=== PATIENT | female | born 1980 | race Caucasian/White ===

== ENCOUNTER 2017-09-28 11:29 | Emergency (ER) | payer BC ==
[2017-09-28 12:09] LABS: HCG UR QUAL NEGATIVE
[2017-09-28] MEDS ORDERED: IPRATROPIUM/ALBUTEROL 3 ML NEB INH STA (12:27)
[2017-09-28] MEDS ORDERED: IBUPROFEN 800 MG TABLET PO STA (12:28)
--- NOTE | 2017-09-28 12:31 | ED Physician Documentation ---
PD HPI URI - Stated complaint Stated Complaint: BURNING CHEST PX/FEVER/CHILLS/COUGHING BLOOD - Chief complaint Chief Complaint: Resp - History obtained from History obtained from: Patient - History of Present Illness Timing duration: Days (several) Timing details: Gradual onset Associated symptoms: Chills, Sore throat, Dry cough, Chest pain, Dyspnea Contributing factors: Sick contact (Other family members with upper respiratory symptoms.) Similar symptoms before: Has not had sx before - Additional information Additional information: The patient is a 37-year-old female who presents with nonproductive cough, dyspnea, and chest pain with coughing. She has had fatigue, chills, and myalgias that have been progressing over the past several days. She reports generalized headache and sore throat. She denies abdominal pain, vomiting or diarrhea. She found an old albuterol inhaler which has not provided significant relief. Family members have been sick with upper respiratory symptoms recently. The patient does not smoke cigarettes. Review of Systems Constitutional: reports: Fever, Chills, Myalgias, Fatigue Eyes: denies: Irritation Ears: denies: Ear pain Nose: reports: Congestion Throat: reports: Sore throat Cardiac: reports: Chest pain / pressure. denies: Palpitations Respiratory: reports: Dyspnea, Cough GI: denies: Abdominal Pain, Nausea, Vomiting : denies: Dysuria Skin: denies: Rash Musculoskeletal: denies: Back pain, Extremity pain, Extremity swelling Neurologic: reports: Headache. 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 - Present Medications Home Medications: Ambulatory Orders Medication Instructions Recorded Confirmed Albuterol Sulfate [Proventil Hfa 1 - 2 puffs INH Q4H PRN #1 inhaler 09/28/17 Inhaler] Benzonatate [Tessalon Perle] 100 mg PO BID PRN #10 capsule 09/28/17 Herbal Supplements 09/28/17 Immune Support Herbs 09/28/17 Multivitamin [Multiple Vitamins] 1 each PO 09/28/17 [place]-3/Dha/Epa/Fish Oil [Fish Oil 1 each PO 09/28/17 1,000 mg Softgel] predniSONE [Prednisone] 30 mg PO DAILY #15 tablet 09/28/17 - Allergies Allergies/Adverse Reactions: Allergies Allergy/AdvReac Type Severity Reaction Status Date / Time No Known Drug Allergies Allergy Verified 09/28/17 11:38 - Social History Does the pt smoke?: No Smoking Status: Never smoker Does the pt drink ETOH?: No Does the pt have substance abuse?: No - Immunizations Immunizations are current?: Yes - POLST Patient has POLST: No PD ED PE NORMAL - Vitals Vital signs reviewed: Yes (normal) - General General: Alert and oriented X 3, Well developed/nourished - HEENT HEENT: Atraumatic, Moist mucous membranes, Pharynx benign - Neck Neck: Supple, no meningeal sign, No adenopathy, No JVD - Cardiac Cardiac: RRR, No murmur - Respiratory Respiratory: Other (Scattered coarse breath sounds, with wheezing on forced expiration.) - Abdomen Abdomen: Soft, Non tender - Back Back: No CVA TTP - Derm Derm: No rash - Extremities Extremities: No edema, No calf tenderness / cord - Neuro Neuro: Alert and oriented X 3, No motor deficit, Normal speech Results - Vitals Vitals: Oxygen O2 Source Room air - EKG (time done) 11:39 Rate: Rate (enter#) (94) Rhythm: NSR [place]: Normal Intervals: Other (short OR interval) QRS: Normal Ischemia: Normal ST segments Computer interpretation: Agree with computer - Labs Labs: Laboratory Tests 09/28/17 09/28/17 11:44 12:01 Ur Specific [place] <=1.005 Urine HCG, Qual NEGATIVE Influenza A (Rapid) Negative Influenza B (Rapid) Negative Influenza Types A,B Ag - - Rads (name of study) CXR Radiology: Prelim report reviewed, EMP read contemporaneously, See rad report ( Normal 2 view chest radiography.) PD MEDICAL DECISION MAKING - ED course Complexity details: reviewed results, re-evaluated patient, considered differential, d/w patient, d/w family ED course: The patient's presentation is most consistent with asthmatic bronchitis. Chest x-ray reveals no evidence of pneumonia, and I doubt pulmonary embolus. Electrocardiogram is normal, as is her chest x-ray. Influenza swab is negative. Treatment in the emergency department included administration of dexamethasone 10 mg orally, and ibuprofen 800 mg orally. Following the above treatment, her respiratory status improved, and her wheezing resolved. She is being discharged with prescription for albuterol inhaler, prednisone, and Tessalon Perles. I discussed with her and her family the diagnosis, symptomatic treatment and outpatient follow-up, as well as potentially worrisome signs or symptoms that should prompt reevaluation in the emergency department. Departure - Departure Disposition: 01 Home, Self Care Clinical Impression: Asthmatic bronchitis Qualifiers: Asthma severity: moderate Asthma persistence: persistent Asthma complication type: with acute exacerbation Qualified Code(s): J45.41 - Moderate persistent asthma with (acute) exacerbation Condition: Stable Instructions: ED Bronchitis Asthmatic Follow-Up: Jackie Keller MD [Primary Care Provider] - Prescriptions: Albuterol Sulfate [Proventil Hfa Inhaler] 1 - 2 puffs INH Q4H PRN #1 inhaler PRN Reason: Shortness Of Air/Wheezing Benzonatate [Tessalon Perle] 100 mg PO BID PRN #10 capsule PRN Reason: Cough predniSONE [Prednisone] 30 mg PO DAILY #15 tablet Comments: Use albuterol inhaler as prescribed. Take prednisone daily for 5 days as prescribed. You can use Tylenol or ibuprofen if needed for fever or discomfort. Follow up with your primary physician within 1 week. Call to schedule appointment. Return to the emergency department if you develop increasing difficulty breathing, or otherwise worsening symptoms. Discharge Date/Time: 09/28/17 13:53
--- NOTE | 2017-09-28 13:18 | XRAY Preliminary Report ---
Exam: XR CHEST 2 VIEW X-RAY IMPRESSION: Normal 2-view chest radiography. [facility] SITE ID: [id number]
--- NOTE | 2017-09-28 13:26 | XRAY Report ---
EXAM: CHEST RADIOGRAPHY EXAM DATE: 09/28/2017 01:08 PM. CLINICAL HISTORY: Cough, shortness of breath and dizziness for 2 days. COMPARISON: 09/25/2015. TECHNIQUE: 2 views. FINDINGS: Lungs/Pleura: No focal opacities evident. No pleural effusion. No pneumothorax. Normal volumes. Mediastinum: Heart and mediastinal contours are unremarkable. Other: None. IMPRESSION: Normal 2-view chest radiography. [facility] Referring Provider Line: [phone] SITE ID: [id number]
[2017-09-28] MEDS ORDERED: DEXAMETHASONE 10 MG/ML VIAL PO STA (13:28)
[2017-09-28 13:53] VITALS: BP 118/75
== END 2017-09-28 13:53 | disposition home or self-care (01) ==
LOC: ED 11:29
DX: J45.41 Moderate persistent asthma with (acute) exacerbation (principal)
CPT/HCPCS: 71046; 81025; 87275; 87276; 93005; 94640; 94664; 99283; 99284; A9270

== ENCOUNTER 2018-05-11 14:13 | Outpatient (CLI) | payer BC ==
[2018-05-11 18:05] LABS: BASOPHILS % (AUTO) 0.7 %; EOSINOPHILS # (AUTO) 0.3 10^3/uL (0.0-0.7); EOSINOPHILS % (AUTO) 4.4 %; HGB - HEMOGLOBIN 13.3 g/dL (12.0-16.0); LYMPHOCYTES # (AUTO) 2.6 10^3/uL (1.5-3.5); LYMPHOCYTES % (AUTO) 41.8 %; MEAN CORPUSCULAR HEMOGLOBIN 29.6 pg (27.0-31.0); MEAN CORPUSCULAR VOLUME 89.6 fL (81.0-99.0); MEAN PLATELET VOLUME 8.8 fL (7.9-10.8); MONOCYTES # (AUTO) 0.4 10^3/uL (0.0-1.0); MONOCYTES % (AUTO) 5.7 %; NEUTROPHILS % (AUTO) 47.4 %; PLT - PLATELET COUNT 223 10^3/uL (130-450); RED BLOOD COUNT 4.49 10^6/uL (4.20-5.40); RED CELL DISTRIBUTION WIDTH 13.6 % (12.0-15.0); WHITE BLOOD COUNT 6.3 x10^3/uL (4.8-10.8)
[2018-05-11 18:26] LABS: T4 (THYROXINE) 9.07 ug/dL (6.09-12.23)
[2018-05-11 18:29] LABS: THYROID STIMULATING HORMONE 0.64 uIU/mL (0.34-5.60)
[2018-05-11 18:32] LABS: ALBUMIN 4.2 g/dL (3.2-5.5); ALBUMIN/GLOBULIN RATIO 1.3 (1.0-2.2); BILIRUBIN,TOTAL 0.5 mg/dL (0.2-1.0); CALCIUM 9.2 mg/dL (8.5-10.3); CREATININE 0.9 mg/dL (0.4-1.0); FREE T4 (FREE THYROXINE) 0.89 ng/dL (0.58-1.64); TOTAL PROTEIN 7.4 g/dL (6.7-8.2)
[2018-05-14 17:26] LABS: THYROID PEROXIDASE ANTIBODIES 1 IU/mL (<9)
== END 2018-05-11 14:14 | disposition home or self-care (01) ==
LOC: LAB.F 14:13
PROVIDERS: ATTEND Nurse Practitioner Family
DX: N64.4 Mastodynia (principal); Z86.39 Personal history of other endocrine, nutritional and metabolic disease
CPT/HCPCS: 36415; 80053; 82306; 84436; 84439; 84443; 84481; 85025; 86376; 86800

== ENCOUNTER 2018-08-08 18:37 | Outpatient (CLI) | payer BC ==
--- NOTE | 2018-08-09 09:14 | Ultrasound Report ---
Reason: UNCERTAIN GESTATIONAL AGE Procedure Date: 08/08/2018 Accession Number: [id number] / [id number] Procedure: US - OB First Trimester CPT Code: FULL RESULT: EXAM: FIRST TRIMESTER OBSTETRIC ULTRASOUND (Less than 11 weeks) EXAM DATE: 08/08/2018 07:18 PM. CLINICAL HISTORY: . Uncertain gestational age. LMP: Unknown. COMPARISONS: None. TECHNIQUE: Transabdominal ultrasound examination with static image documentation. CLINICAL DATES: Uncertain clinical dates. ASSESSMENT: Gestational Sac: Single intrauterine. Mean gestational sac diameter: 51 mm = 10 weeks, 6 days. Embryo: CRL (crown-rump length) 26 mm = 9 weeks, 3 days. Cardiac activity: 163 beats per minute. Yolk sac: 5 mm. Amniotic fluid: Not accurately assessed at this gestational age. Early placenta: Not well visualized although may be forming anteriorly.. Other: No perigestational fluid collection demonstrated. MATERNAL STRUCTURES: Uterus: Anteverted. Unremarkable. Cervix: Closed. Right Ovary/Adnexa: The ovary measures 3.8 x 1.8 x 2.9 cm, volume 10.1 cc. Within the right ovary is a 1.4 x 1.6 x 1.5 cm lesion with peripheral vascularity likely representing a corpus luteal cyst.. Left Ovary/Adnexa: Nonvisualized which may be due to position or size. Free Fluid: None. Other: None. IMPRESSION: 1. Single viable intrauterine at EGA 9 weeks, 3 days with OMAR 03/10/2019 based on crown-rump length. 2. Right ovarian 1.6 cm lesion likely reversing a corpus luteal cyst. [facility]
== END 2018-08-08 18:38 | disposition home or self-care (01) ==
LOC: DI 18:37
PROVIDERS: ATTEND Midwife
DX: O34.81 Maternal care for other abnormalities of pelvic organs, first trimester (principal); N83.8 Other noninflammatory disorders of ovary, fallopian tube and broad ligament; Z3A.09 9 weeks gestation of pregnancy
CPT/HCPCS: 76801

== ENCOUNTER 2020-06-11 13:20 | Outpatient (CLI) | payer BC | END 2020-06-11 13:21 | disposition home or self-care (01) | LOC: COV 13:20 | PROVIDERS: ATTEND Family Medicine | DX: R53.83 Other fatigue (principal); Z20.828 Contact with and (suspected) exposure to other viral communicable diseases; M79.10 Myalgia, unspecified site; R68.83 Chills (without fever); J02.9 Acute pharyngitis, unspecified; R43.9 Unspecified disturbances of smell and taste; R09.81 Nasal congestion ==

== ENCOUNTER 2020-12-11 10:41 | Emergency (ER) | payer BC ==
--- NOTE | 2020-12-11 11:01 | ED Physician Documentation ---
PD HPI CHEST PAIN - Stated complaint Stated Complaint: CHEST/LEG PX - Chief complaint Chief Complaint: Cardiac - History obtained from History obtained from: Patient - History of Present Illness Timing - onset: How many weeks ago (2 weeks of muscle ahces, chest pain and dyspnea started the day after her COVID vaccine part 2. Thought it would improved after few days, but has persisted. Chest pain anteriorly left, somewhat pleuritic. Has also noted leg cramping the past few days now.) Timing - onset during: Rest Timing - details: Abrupt onset (the day after COVID vaccine.), Still present, Waxing and waning Quality: Aching, Pain Location: Left chest Radiation: Back (left scapular area) Associated symptoms: Nausea, General Weakness. No: Shortness of air, Vomiting, Feeling faint / dizzy, Cough Similar symptoms before: Has not had sx before Recently seen: Clinic (2nd COVID vaccine 2 weeks ago) Review of Systems Constitutional: reports: Chills, Myalgias, Fatigue. denies: Fever Nose: denies: Rhinorrhea / runny nose, Congestion Throat: denies: Sore throat Cardiac: reports: Chest pain / pressure, Calf pain (few days). denies: Palpitations, Pedal edema Respiratory: reports: Dyspnea. denies: Cough GI: denies: Abdominal Pain, Nausea, Vomiting Skin: denies: Rash, Lesions Neurologic: reports: Generalized weakness. 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 - Present Medications Home Medications: Ambulatory Orders Medication Instructions Recorded Confirmed Albuterol Sulfate [Proventil Hfa 1 - 2 puffs INH Q4H PRN #1 inhaler 09/28/17 Inhaler] Benzonatate [Tessalon Perle] 100 mg PO BID PRN #10 capsule 09/28/17 Herbal Supplements 09/28/17 Immune Support Herbs 09/28/17 Multivitamin [Multiple Vitamins] 1 each PO 09/28/17 [place]-3/Dha/Epa/Fish Oil [Fish Oil 1 each PO 09/28/17 1,000 mg Softgel] predniSONE [Prednisone] 30 mg PO DAILY #15 tablet 09/28/17 dexAMETHasone [Decadron] 4 mg PO DAILY #5 tablet 12/11/20 - Allergies Allergies/Adverse Reactions: Allergies Allergy/AdvReac Type Severity Reaction Status Date / Time No Known Drug Allergies Allergy Verified 12/11/20 10:57 - Social History Does the pt smoke?: No Smoking Status: Never smoker Does the pt drink ETOH?: No Does the pt have substance abuse?: No - Immunizations Immunizations are current?: Yes - POLST Patient has POLST: No PD ED PE NORMAL - Vitals Vital signs reviewed: Yes - General General: Alert and oriented X 3, No acute distress, Well developed/nourished - HEENT HEENT: Moist mucous membranes, Pharynx benign - Neck Neck: Supple, no meningeal sign, No adenopathy - Cardiac Cardiac: RRR, No murmur - Respiratory Respiratory: Clear bilaterally, Other (mild chest wall tenderness left pectoral area but does not fully reproduce the symptoms. ) - Abdomen Abdomen: Soft, Non tender - Back Back: No CVA TTP - Derm Derm: Normal color, Warm and dry - Extremities Extremities: No tenderness to palpate, Normal ROM s pain, No edema - Neuro Neuro: Alert and oriented X 3, No motor deficit, Normal speech Results - Vitals Vitals: Vital Signs - 24 hr 12/11/20 12/11/20 12/11/20 10:52 12:06 12:36 Temperature 36.4 C L Heart Rate 83 75 83 Respiratory 16 18 18 Rate Blood Pressure 138/85 H 152/120 H 127/87 H O2 Saturation 100 98 100 12/11/20 13:20 Temperature Heart Rate 81 Respiratory 18 Rate Blood Pressure 109/79 O2 Saturation 100 Oxygen O2 Source Room air - EKG (time done) 10:48 Rate: Rate (enter#) (66) Rhythm: NSR [place]: Normal Intervals: Normal [place] QRS: Normal Ischemia: Normal ST segments. No: ST elevation c/w ischemia, ST depression - Labs Labs: Laboratory Tests 12/11/20 12/11/20 12/11/20 11:08 11:08 11:08 WBC 5.3 RBC 4.33 Hgb 12.8 Hct 38.7 MCV 89.4 MCH 29.6 MCHC 33.1 RDW 12.9 Plt Count 219 MPV 9.5 Neut # (Auto) 2.8 Lymph # (Auto) 1.9 [place] # (Auto) 0.4 Eos # (Auto) 0.2 Baso # (Auto) 0.0 Absolute Nucleated RBC 0.00 Nucleated RBC % 0.0 D-Dimer Sodium 138 Potassium 3.9 Chloride 107 Carbon Dioxide 21 Anion Gap 10.0 BUN 10 Creatinine 0.7 Estimated GFR (MDRD) 92 Glucose 107 H Calcium 8.8 Total Bilirubin 1.1 H AST 19 ALT 22 Alkaline Phosphatase 37 L Troponin I High Sens < 2.3 L B-Natriuretic Peptide Total Protein 7.1 Albumin 4.1 Globulin 3.0 Albumin/Globulin Ratio 1.4 Lipase 32 12/11/20 12/11/20 12:10 12:10 WBC RBC Hgb Hct MCV MCH MCHC RDW Plt Count MPV Neut # (Auto) Lymph # (Auto) [place] # (Auto) Eos # (Auto) Baso # (Auto) Absolute Nucleated RBC Nucleated RBC % D-Dimer < 200.0 L Sodium Potassium Chloride Carbon Dioxide Anion Gap BUN Creatinine Estimated GFR (MDRD) Glucose Calcium Total Bilirubin AST ALT Alkaline Phosphatase Troponin I High Sens B-Natriuretic Peptide 25 Total Protein Albumin Globulin Albumin/Globulin Ratio Lipase - Rads (name of study) chest xray Radiology: Prelim report reviewed (no acut process), See rad report PD MEDICAL DECISION MAKING - ED course Complexity details: reviewed results (no signs of more significant cause. Presume muscular inflammation s/p vaccine. ), considered differential, d/w patient Departure - Departure Disposition: 01 Home, Self Care Clinical Impression: Chest pain Qualifiers: Chest pain type: unspecified Qualified Code(s): R07.9 - Chest pain, unspecified Vaccine reaction Qualifiers: Encounter type: initial encounter Qualified Code(s): T50.Z95A - Adverse effect of other vaccines and biological substances, initial encounter Condition: Stable Record reviewed to determine appropriate education?: Yes Instructions: ED Chest Pain Atypical Unkn Cause Follow-Up: BECCA SLAUGHTER DO [Primary Care Provider] - Prescriptions: dexAMETHasone [Decadron] 4 mg PO DAILY #5 tablet Comments: Your tests here are normal without any signs of more serious cause of your symptoms. I presume some inflammatory response generally still subsequent to the vaccine. We can try Decadron steroid anti-inflammatory for a 5-day short course. Add Tylenol every 4-6 hours if needed for pains. Recheck if not improved well over the next several days and return if worsening. Discharge Date/Time: 12/11/20 13:31
[2020-12-11 11:14] LABS: BASOPHILS % (AUTO) 0.8 %; EOSINOPHILS # (AUTO) 0.2 10^3/uL (0.0-0.7); EOSINOPHILS % (AUTO) 3.2 %; HCT - HEMATOCRIT 38.7 % (37.0-47.0); HGB - HEMOGLOBIN 12.8 g/dL (12.0-16.0); LYMPHOCYTES # (AUTO) 1.9 10^3/uL (1.5-3.5); LYMPHOCYTES % (AUTO) 35.9 %; MEAN CORPUSCULAR HEMOGLOBIN 29.6 pg (27.0-31.0); MEAN CORPUSCULAR HGB CONC 33.1 g/dL (32.0-36.0); MEAN CORPUSCULAR VOLUME 89.4 fL (81.0-99.0); MEAN PLATELET VOLUME 9.5 fL (7.9-10.8); MONOCYTES # (AUTO) 0.4 10^3/uL (0.0-1.0); MONOCYTES % (AUTO) 7.5 %; NEUTROPHILS # (AUTO) 2.8 10^3/uL (1.5-6.6); NEUTROPHILS % (AUTO) 52.4 %; PLT - PLATELET COUNT 219 10^3/uL (130-450); RED BLOOD COUNT 4.33 10^6/uL (4.20-5.40); RED CELL DISTRIBUTION WIDTH 12.9 % (12.0-15.0); WHITE BLOOD COUNT 5.3 x10^3/uL (4.8-10.8)
[2020-12-11] MEDS ORDERED: DEXAMETHASONE 10 MG/ML VIAL IVP STA (11:27)
[2020-12-11] MEDS ORDERED: KETOROLAC 30 MG/ML VIAL IVP STA (11:27)
[2020-12-11] MEDS ORDERED: diphenhydrAMINE INJ 50 MG/ML VIAL IVP STA (11:28)
[2020-12-11 11:36] LABS: ALBUMIN 4.1 g/dL (3.2-5.5); ALBUMIN/GLOBULIN RATIO 1.4 (1.0-2.2); BILIRUBIN,TOTAL 1.1 mg/dL (0.2-1.0); CALCIUM 8.8 mg/dL (8.5-10.3); CREATININE 0.7 mg/dL (0.4-1.0); POTASSIUM 3.9 mmol/L (3.5-5.0); TOTAL PROTEIN 7.1 g/dL (6.7-8.2)
--- NOTE | 2020-12-11 11:47 | XRAY Report ---
PROCEDURE: Chest 1 View X-Ray INDICATIONS: Chest pain TECHNIQUE: One view of the chest was acquired. COMPARISON: 09/28/2017 FINDINGS: Surgical changes and devices: None. Lungs and pleura: No pleural effusions or pneumothorax. Lungs are clear. Mediastinum: Mediastinal contours appear normal. Heart size is normal. Bones and chest wall: No suspicious bony lesions. Overlying soft tissues appear unremarkable. IMPRESSION: No acute cardiopulmonary pathology. Reviewed by: David Jaimes MD on 12/11/2020 11:46 AM PDT Approved by: David Jaimes MD on 12/11/2020 11:46 AM PDT Station ID: [id number]
[2020-12-11 13:21] VITALS: BP 109/79
== END 2020-12-11 13:31 | disposition home or self-care (01) ==
LOC: ED 10:41
DX: R07.9 Chest pain, unspecified (principal); T50.Z95A Adverse effect of other vaccines and biological substances, initial encounter
CPT/HCPCS: 36415; 71045; 80053; 83690; 83880; 84484; 85025; 85379; 93005; 96374; 96375; 99284; J1200

== ENCOUNTER 2021-02-19 15:23 | Outpatient (CLI) | payer BC ==
--- NOTE | 2021-02-19 17:15 | Ultrasound Report ---
PROCEDURE: OB First Trimester w/TV INDICATIONS: SUPERVISION OF , LLQ ABD PAIN OUTSIDE/PRIOR DATING DATA: Last menstrual period (LMP): 12/19/2020. LMP-based estimated date of delivery (OMAR): 09/25/2021. First dating scan (date and location): 02/19/2021. Estimated date of delivery (OMAR) from first dating scan: 10/16/2021. The below data below was generated using the OMAR of 10/16/2021 TECHNIQUE: Real-time scanning was performed of the fetus and maternal pelvic organs, with image documentation. Endovaginal scanning was also performed to better visualize the fetus and maternal ovaries. COMPARISON: None FINDINGS: Embryo: [place]-rump length measures 0.28 cm corresponding to 5 week 6 day gestation. No cardiac activ ity identified. Yolk sac is not well seen. Perigestational bleed measures 1.1 x 1.0 x 3.2 centimeters. Heart rate: None Measurement variability in dating: +/- 4 weeks by LMP, +/- 7 days by mean sac diameter (use before 6 weeks gestation if crown-rump length not able to be measured), +/- 5 days by crown-rump length (6-12 weeks gestation). Maternal organs: Ovaries shows left-sided corpus luteum cyst measuring 2.0 x 1.1 cm . Both ovaries h ave appropriate vascularity.. IMPRESSION: 1. Single intrauterine corresponding with a 5 week 6 day gestation by crown-rump length. No cardiac motion present. Differential considerations include normal early , and demise . Consider short-term interval follow-up. 2. Xi-gestational bleed noted 3.2 x 1.1 cm Reviewed by: Rober Youssef MD on 02/19/2021 4:14 PM KRISTINA Approved by: Rober Youssef MD on 02/19/2021 4:14 PM AKTAS[facility] Station ID: [id number]
== END 2021-02-19 15:24 | disposition home or self-care (01) ==
LOC: DI 15:23
PROVIDERS: ATTEND Midwife
DX: O99.891 Other specified diseases and conditions complicating pregnancy (principal); R10.30 Lower abdominal pain, unspecified; O20.8 Other hemorrhage in early pregnancy; Z3A.01 Less than 8 weeks gestation of pregnancy

== ENCOUNTER 2021-03-10 18:31 | Outpatient (CLI) | payer BC ==
[2021-03-10 18:51] LABS: BASOPHILS # (AUTO) 0.1 10^3/uL (0.0-0.1); BASOPHILS % (AUTO) 0.8 %; EOSINOPHILS # (AUTO) 0.3 10^3/uL (0.0-0.7); EOSINOPHILS % (AUTO) 5.2 %; HCT - HEMATOCRIT 31.7 % (37.0-47.0); HGB - HEMOGLOBIN 10.4 g/dL (12.0-16.0); LYMPHOCYTES # (AUTO) 2.6 10^3/uL (1.5-3.5); LYMPHOCYTES % (AUTO) 44.2 %; MEAN CORPUSCULAR HEMOGLOBIN 30.1 pg (27.0-31.0); MEAN CORPUSCULAR HGB CONC 32.8 g/dL (32.0-36.0); MEAN CORPUSCULAR VOLUME 91.9 fL (81.0-99.0); MEAN PLATELET VOLUME 9.3 fL (7.9-10.8); MONOCYTES # (AUTO) 0.4 10^3/uL (0.0-1.0); MONOCYTES % (AUTO) 6.1 %; NEUTROPHILS # (AUTO) 2.6 10^3/uL (1.5-6.6); NEUTROPHILS % (AUTO) 43.4 %; PLT - PLATELET COUNT 270 10^3/uL (130-450); RED BLOOD COUNT 3.45 10^6/uL (4.20-5.40); RED CELL DISTRIBUTION WIDTH 13.2 % (12.0-15.0); WHITE BLOOD COUNT 5.9 x10^3/uL (4.8-10.8)
== END 2021-03-10 18:32 | disposition home or self-care (01) ==
LOC: LAB 18:31
PROVIDERS: ATTEND Midwife
DX: O03.80 Unspecified complication following complete or unspecified spontaneous abortion (principal); O03.6 Delayed or excessive hemorrhage following complete or unspecified spontaneous abortion; D50.9 Iron deficiency anemia, unspecified
CPT/HCPCS: 36415; 84702; 85025

== ENCOUNTER 2021-03-16 16:49 | Outpatient (CLI) | payer BC ==
--- NOTE | 2021-03-17 08:52 | Ultrasound Report ---
PROCEDURE: Pelvic w/Transvaginal INDICATIONS: SAB, UNSURE IF COMPLETE TECHNIQUE: Real-time scanning was performed of the pelvic organs, with image documentation. Additional endovagi nal scanning was necessary due to incomplete visualization of the adnexal and endometrial structures by transabdominal scanning. COMPARISON: OB ultrasound 02/19/2021 FINDINGS: No pathologic free abdominal or pelvic fluid. Uterus: Uterus is enlarged in size at 10.0 x 3.7 x 6.2 cm. The endometrium measures 19.8 mm in comb ined thickness. It is heterogeneous in appearance. There is an appearance of mild increased vascular ity. Ovaries: Right ovary measures 4.5 x 3.9 x 5.3 cm, volume 14.6 cc. There is a focus of complex echoge nicity measuring 4.1 x 4.0 x 4.3 cm. The left ovary measures 5.0 x 3.3 x 4.5 cm, volume 38.3 cc. A fo maryam area of decreased echogenicity is identified measuring 3.3 x 2.6 x 3.4 cm. IMPRESSION: Heterogeneous thickened endometrium with areas of increased vascularity. Given recent history of spon taneous , retained products of conception cannot be definitively excluded. Simple left ovarian cyst. Complex right ovarian cyst suggestive of hemorrhagic cyst. Reviewed by: Suly Johnson MD on 03/17/2021 8:50 AM PDT Approved by: Suly Johnson MD on 03/17/2021 8:50 AM PDT Station ID: [id number]
== END 2021-03-16 16:50 | disposition home or self-care (01) ==
LOC: DI 16:49
PROVIDERS: ATTEND Midwife
DX: O03.80 Unspecified complication following complete or unspecified spontaneous abortion (principal); O03.6 Delayed or excessive hemorrhage following complete or unspecified spontaneous abortion; R93.89 Abnormal findings on diagnostic imaging of other specified body structures; N83.292 Other ovarian cyst, left side; N83.291 Other ovarian cyst, right side

== ENCOUNTER 2021-04-27 13:08 | Outpatient (CLI) | payer BC | END 2021-04-27 13:09 | disposition home or self-care (01) | LOC: LAB 13:08 | PROVIDERS: ATTEND Internal Medicine Gastroenterology | DX: R19.7 Diarrhea, unspecified (principal) | CPT/HCPCS: 83630 ==

== ENCOUNTER 2021-05-04 19:18 | Emergency (ER) | payer BC ==
[2021-05-04 20:01] LABS: BASOPHILS # (AUTO) 0.1 10^3/uL (0.0-0.1); EOSINOPHILS # (AUTO) 0.1 10^3/uL (0.0-0.7); EOSINOPHILS % (AUTO) 2.3 %; HCT - HEMATOCRIT 41.1 % (37.0-47.0); HGB - HEMOGLOBIN 13.9 g/dL (12.0-16.0); LYMPHOCYTES # (AUTO) 2.3 10^3/uL (1.5-3.5); LYMPHOCYTES % (AUTO) 38.5 %; MEAN CORPUSCULAR HGB CONC 33.8 g/dL (32.0-36.0); MEAN CORPUSCULAR VOLUME 88.8 fL (81.0-99.0); MEAN PLATELET VOLUME 10.1 fL (7.9-10.8); MONOCYTES # (AUTO) 0.4 10^3/uL (0.0-1.0); MONOCYTES % (AUTO) 6.8 %; NEUTROPHILS # (AUTO) 3.1 10^3/uL (1.5-6.6); NEUTROPHILS % (AUTO) 51.2 %; PLT - PLATELET COUNT 228 10^3/uL (130-450); RED BLOOD COUNT 4.63 10^6/uL (4.20-5.40); RED CELL DISTRIBUTION WIDTH 12.1 % (12.0-15.0)
[2021-05-04 20:18] LABS: ALBUMIN 4.3 g/dL (3.2-5.5); ALBUMIN/GLOBULIN RATIO 1.3 (1.0-2.2); BILIRUBIN,TOTAL 0.4 mg/dL (0.2-1.0); CREATININE 0.7 mg/dL (0.4-1.0); POTASSIUM 3.4 mmol/L (3.5-5.0); TOTAL PROTEIN 7.6 g/dL (6.7-8.2)
--- NOTE | 2021-05-04 20:36 | XRAY Report ---
PROCEDURE: Chest 1 View X-Ray INDICATIONS: Chest Pain TECHNIQUE: One view of the chest was acquired. COMPARISON: 12/11/2020. FINDINGS: Surgical changes and devices: None. Lungs and pleura: No pleural effusions or pneumothorax. Lungs are clear. Mediastinum: Mediastinal contours appear normal. Heart size is normal. Bones and chest wall: No suspicious bony lesions. Overlying soft tissues appear unremarkable. IMPRESSION: 1. No acute cardiopulmonary disease. Reviewed by: Alexander Preciado MD on 05/04/2021 8:35 PM PST Approved by: Alexander Preciado MD on 05/04/2021 8:35 PM [facility] Station ID: [id number]
--- NOTE | 2021-05-04 20:49 | ED Physician Documentation ---
History of Present Illness - Stated complaint Stated Complaint: CHEST PX,BODY SHAKES - Chief complaint Chief Complaint: General - History obtained from History obtained from: Patient - History of Present Illness Timing: Today Pain level max: 4 Pain level now: 3 - Additonal information Additional information: Patient is a 40-year-old female who presents to the emergency department stating she felt warmth over her left chest and spreading down her left arm earlier today. She states she has had some intermittent palpitations as well as intermittent epigastric and right upper quadrant abdominal pain. She states that she has been followed by GI for epigastric issues. The abdominal pain is worse with eating, especially fatty foods. Does not have any cardiac history. She is not on medications at home but does take a list of supplements. No fevers. No chills. No coughing. No recent illness. Currently still feels slight warmth and tingling in the left arm. Review of Systems Ten Systems: 10 systems reviewed and negative Constitutional: denies: Fever, Chills Ears: denies: Ear pain Nose: denies: Rhinorrhea / runny nose, Congestion Throat: denies: Sore throat Cardiac: reports: Palpitations. denies: Chest pain / pressure, Calf pain Respiratory: denies: Dyspnea, Cough, Wheezing GI: reports: Diarrhea (Chronic and unchanged). 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 - Present Medications Home Medications: Ambulatory Orders Medication Instructions Recorded Confirmed Albuterol Sulfate [Proventil Hfa 1 - 2 puffs INH Q4H PRN #1 inhaler 09/28/17 Inhaler] Benzonatate [Tessalon Perle] 100 mg PO BID PRN #10 capsule 09/28/17 Herbal Supplements 09/28/17 Immune Support Herbs 09/28/17 Multivitamin [Multiple Vitamins] 1 each PO 09/28/17 [place]-3/Dha/Epa/Fish Oil [Fish Oil 1 each PO 09/28/17 1,000 mg Softgel] predniSONE [Prednisone] 30 mg PO DAILY #15 tablet 09/28/17 dexAMETHasone [Decadron] 4 mg PO DAILY #5 tablet 12/11/20 - Allergies Allergies/Adverse Reactions: Allergies Allergy/AdvReac Type Severity Reaction Status Date / Time No Known Drug Allergies Allergy Verified 12/11/20 10:57 - Social History Does the pt smoke?: No Smoking Status: Never smoker Does the pt drink ETOH?: No Does the pt have substance abuse?: No - Immunizations Immunizations are current?: Yes - POLST Patient has POLST: No PD ED PE NORMAL - Vitals Vital signs reviewed: Yes - General General: Alert and oriented X 3, No acute distress, Well developed/nourished - HEENT HEENT: PERRL, Moist mucous membranes - Neck Neck: Supple, no meningeal sign - Cardiac Cardiac: RRR, No murmur, Strong equal pulses - Respiratory Respiratory: No respiratory distress, Clear bilaterally - Abdomen Abdomen: Soft, Non tender, Non distended - Derm Derm: Warm and dry - Extremities Extremities: No edema, No calf tenderness / cord - Neuro Neuro: Alert and oriented X 3 - Psych Psych: Normal mood, Normal affect Results - Vitals Vitals: Vital Signs - 24 hr 05/04/21 05/04/21 05/04/21 19:26 19:45 21:29 Temperature 36.8 C Heart Rate 98 87 80 Respiratory 20 18 13 Rate Blood Pressure 131/93 H 138/72 H 125/71 O2 Saturation 100 100 100 Oxygen O2 Source Room air - EKG (time done) 1939 Rate: Rate (enter#) (75) Rhythm: NSR Nice: Normal Intervals: Normal [place] QRS: Normal Ischemia: Normal ST segments - Labs Labs: Laboratory Tests 05/04/21 05/04/21 05/04/21 19:54 19:54 19:54 WBC 6.0 RBC 4.63 Hgb 13.9 Hct 41.1 MCV 88.8 MCH 30.0 MCHC 33.8 RDW 12.1 Plt Count 228 MPV 10.1 Neut # (Auto) 3.1 Lymph # (Auto) 2.3 [place] # (Auto) 0.4 Eos # (Auto) 0.1 Baso # (Auto) 0.1 Absolute Nucleated RBC 0.00 Nucleated RBC % 0.0 Sodium 138 Potassium 3.4 L Chloride 102 Carbon Dioxide 25 Anion Gap 11.0 BUN 9 Creatinine 0.7 Estimated GFR (MDRD) 92 Glucose 89 Calcium 9.0 Total Bilirubin 0.4 AST 21 ALT 23 Alkaline Phosphatase 36 L Troponin I High Sens < 2.3 L Total Protein 7.6 Albumin 4.3 Globulin 3.3 Albumin/Globulin Ratio 1.3 Lipase 32 - Rads (name of study) cxr Radiology: Final report received, EMP read contemporaneously, See rad report (No acute abnormality) PD MEDICAL DECISION MAKING - ED course Complexity details: reviewed results, re-evaluated patient, considered differential (No ST elevation CA, no aortic dissection, no PE, no tension pneumothorax, no aortic aneurysm), d/w patient ED course: Patient is a 40-year-old female who presents to the emergency department with several weeks of epigastric and right upper quadrant abdominal pain, worse with eating fatty foods. Had tingling to the left arm tonight as well as a feeling of warmth across her chest. No acute ischemia on EKG. Negative troponin. Normal blood work. Negative chest x-ray. Patient is awaiting ultrasound for potential gallbladder disease. If the ultrasound is negative, the plan will be to send her home. Patient will be signed out to the oncoming emergency department physician awaiting ultrasound. This document was made in part using voice recognition software. While efforts are made to proofread this document, sound alike and grammatical errors may occur. Departure - Departure Clinical Impression: Paresthesia Abdominal pain Qualifiers: Abdominal location: epigastric Qualified Code(s): R10.13 - Epigastric pain Condition: Stable
[2021-05-04] MEDS ORDERED: IOVERSOL 320 100 ML VIAL IVP ONE ×2 (22:21→22:52)
--- NOTE | 2021-05-04 22:26 | Ultrasound Report ---
PROCEDURE: Abdomen Limited INDICATIONS: RUQ abd pain TECHNIQUE: Real-time focused scanning was performed of the abdomen, with image documentation. COMPARISON: None. FINDINGS: Ill-defined echogenic focus measuring approximately 1.5 cm within the head of the pancreas is nonspecific. No pancreatic ductal or biliary ductal dilatation. The gallbladder is unremarkable. Normal appearance of the liver. Right kidney normal in size with no shadowing calculus or hydronephro sis. IMPRESSION: Specific echogenic focus within the pancreas. A CT of the abdomen and pelvis is pending completion, w [facility] will provide further imaging information of this lesion. Otherwise normal right upper quadrant ultrasound. Reviewed by: Jase Castillo MD on 05/04/2021 10:24 PM PST Approved by: Jase Castillo MD on 05/04/2021 10:24 PM PST Station ID: [id number]
--- NOTE | 2021-05-04 23:06 | CT Report ---
PROCEDURE: Abdomen/Pelvis W INDICATIONS: abnormal pancreatic head on US CONTRAST: IV CONTRAST: Optiray 320 ml: 100 PO CONTRAST: *NO PO CONTRAST TECHNIQUE: After the administration of intravenous contrast, 5 mm thick sections acquired from the diaphragms to the symphysis. 5 mm thick coronal and sagittal reformats were acquired. For radiation dose reducti on, the following was used: automated exposure control, adjustment of mA and/or kV according to adolfo ent size. COMPARISON: Same-day ultrasound FINDINGS: Image quality: Excellent. ABDOMEN: Lung bases: Lung bases are clear. Heart size is normal. Solid organs: Liver and spleen are normal in size and enhancement. Gallbladder Biliary system is non dilated. Pancreas enhances normally. No adrenal nodules. Kidneys demonstrate normal size an d enhancement, without hydronephrosis. Peritoneum and bowel: Bowel loops demonstrate normal wall thickness and caliber. No free fluid or a ir. Nodes and vessels: No retroperitoneal or mesenteric adenopathy by size criteria. Aorta and inferior vena cava are normal in size. Miscellaneous: No ventral hernias. PELVIS: Genitourinary: Bladder wall thickness is normal. Miscellaneous: No inguinal hernias or adenopathy. Bones: No suspicious bony lesions. No vertebral body compression fractures. IMPRESSION: Pancreas appears normal by CT. There is no correlate for the echogenic focus seen on the preceding ultrasound. This was presumably artifactual on the ultrasound examination. A precautionary pancreatic protocol examination on nonemergent basis could be obtained if there is continued clinica l suspicion. Reviewed by: Jase Castillo MD on 05/04/2021 11:05 PM [facility] Approved by: Jase Castillo MD on 05/04/2021 11:05 PM PST Station ID: [id number]
--- NOTE | 2021-05-04 23:16 | ED Physician Documentation ---
ED Addendum - Addendum Addendum: 05/04/21 23:09 Patient received as signout from off going physician, please see their documentation for further detail. Patient received a signout with CT abdomen pelvis pending for further evaluation of echogenic abnormality of the head of the pancreas. CT does not demonstrate any significant pancreatic lesion. Patient reevaluated at bedside, found to be resting comfortably and in no acute distress. Reported some ongoing improvement of her previous symptoms. At this time will discharge for follow-up with primary care as needed. Otherwise clear return precautions and follow-up instructions given prior to discharge. Departure - Departure Disposition: Home, Self Care Clinical Impression: Paresthesia Abdominal pain Qualifiers: Abdominal location: epigastric Qualified Code(s): R10.13 - Epigastric pain Condition: Stable Instructions: ED Abdominal Pain Female Non-Specific Abdominal Pain Comments: Thank you for allowing us to care for you today at [facility] In the emergency department today you were evaluated for any possible life threatening injury or illness. All of your lab work and your EKG were very reassuring. The ultrasound performed did not show any abnormality with your gallbladder and the CT scan was also very reassuring and did not show any abnormal findings in your pancreas. 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 If it anytime you have any new or worsening symptoms please do not hesitate to return to the emergency department.
[2021-05-04 23:20] VITALS: BP 115/78
== END 2021-05-04 23:26 | disposition home or self-care (01) ==
LOC: ED 19:18
DX: R20.2 Paresthesia of skin (principal); R10.13 Epigastric pain; Z79.899 Other long term (current) drug therapy
CPT/HCPCS: 36415; 71045; 74177; 76705; 80053; 83690; 84484; 85025; 93005; 99284; Q9967

== ENCOUNTER 2021-06-13 14:23 | Outpatient (CLI) | payer BC ==
--- NOTE | 2021-06-14 13:41 | Mammography Report ---
BILATERAL DIGITAL SCREENING MAMMOGRAM 3D/2D WITH EXAGGERATED CC: 06/13/2021 CLINICAL: Routine screening. Baseline exam. No prior exams were available for comparison. The tissue of both breasts is heterogeneously dense. T his may lower the sensitivity of mammography. No significant masses, calcifications, or other findings are seen in either breast. IMPRESSION: NEGATIVE There is no mammographic evidence of malignancy. A 1 year screening mammogram is recommended. This exam was interpreted at Station ID: [id number]. NOTE: For mammograms, a report in lay terms will be sent to the patient. Approximately 15% of breast malignancies will not be visualized mammographically. In the management of a palpable breast mass, a negative mammogram must not discourage biopsy of a clinically suspicious lesion. Electronically Signed By: Chris Rose M.D. atian/mp:06/14/2021 07:23:13 ACR BI-RADS Category 1: Negative [id number] PARENCHYMAL PATTERN: (D) - The breast(s) demonstrate(s) heterogeneously dense fibroglandular jenny garcia. BI-RADS CATEGORY: (1) - 1 RECOMMENDATION: (ANNUAL) - Recommend routine annual screening mammography. [id number] 1 year screening LATERALITY: (B)
== END 2021-06-13 14:24 | disposition home or self-care (01) ==
LOC: DI.S 14:23
DX: Z12.31 Encounter for screening mammogram for malignant neoplasm of breast (principal)

== ENCOUNTER 2021-06-16 15:36 | Emergency (ER) | payer BC ==
--- NOTE | 2021-06-16 17:02 | ED Physician Documentation ---
PD HPI LOWER EXT INJURY - Stated complaint Stated Complaint: RIGHT CALF PX - Chief complaint Chief Complaint: Ext Problem - History obtained from History obtained from: Patient - History of Present Illness PD HPI LOW EXT INJURY LOCATION: Right, Lower leg Type of injury: Other (no known injury to the area) Timing - onset: How many months ago (6) Timing - duration: Months (6) Timing - details: Abrupt onset, Still present, Waxing and waning Improved by: Rest, Immobilization Worsened by: Moving, Palpating Associated symptoms: Swelling. No: Weakness, Numbness, Tingling Contributing factors: No: Anticoagulated Similar symptoms before: Has not had sx before Recently seen: Not recently seen - Additional information Additional information: 40-year-old female recalls that she has had some pain to the right calf that started this summer in November and then it seemed to resolve. She did not have any injury that she recalls to the calf. This was completely resolved and again has started to bother the patient over the past month. She has pain with walking she has some pain to the posterior calf and this morning when it went up behind the knee the patient became concerned about the possibility of deep vein thrombosis and she is come to the emergency department for evaluation. She does have a superficial vein that is engorged. Review of Systems Constitutional: denies: Fever Eyes: denies: Decreased vision Ears: denies: Ear pain Nose: denies: Congestion Throat: denies: Sore throat Respiratory: denies: Dyspnea, Cough GI: denies: Abdominal Pain, Nausea, Vomiting : denies: Dysuria, Frequency Skin: denies: Rash Musculoskeletal: reports: Extremity pain. 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 - Present Medications Home Medications: Ambulatory Orders Medication Instructions Recorded Confirmed Herbal Supplements 1 tab ORAL DAILY 09/28/17 Immune Support Herbs 1 tab ORAL DAILY 09/28/17 Multivitamin [Multiple Vitamins] 1 each PO DAILY 09/28/17 06/16/21 [place]-3/Dha/Epa/Fish Oil [Fish Oil 1 each PO DAILY 09/28/17 06/16/21 1,000 mg Softgel] - Allergies Allergies/Adverse Reactions: Allergies Allergy/AdvReac Type Severity Reaction Status Date / Time No Known Drug Allergies Allergy Verified 06/16/21 15:46 - Social History Does the pt smoke?: No Smoking Status: Never smoker Does the pt drink ETOH?: No Does the pt have substance abuse?: No - Immunizations Immunizations are current?: Yes - POLST Patient has POLST: No PD ED PE NORMAL - Vitals Vital signs reviewed: Yes (hypertensive ) - General General: Alert and oriented X 3, No acute distress, Well developed/nourished - HEENT HEENT: Atraumatic, PERRL, EOMI - Respiratory Respiratory: No respiratory distress - Derm Derm: Normal color, Warm and dry, No rash - Extremities Extremities: No deformity, No edema, Other (posterior calf tenderness without palpable cord. medial varicose vein without tenderness) - Neuro Neuro: Alert and oriented X 3, packaging associate 2-12 intact, No motor deficit, No sensory deficit, Normal speech Eye Opening: Spontaneous Motor: Obeys Commands Verbal: Oriented GCS Score: 15 - Psych Psych: Normal mood, Normal affect Results - Vitals Vitals: Oxygen O2 Source Room air - Rads (name of study) duplex veins Radiology: Prelim report reviewed (Impression: 1. No sonographic evidence of deep vein thrombosis), EMP read indepedently, See rad report PD MEDICAL DECISION MAKING - ED course Complexity details: reviewed results, re-evaluated patient, considered differential, d/w patient ED course: 40-year-old female with right calf pain has a negative duplex venous examination. Departure - Departure Disposition: 01 Home, Self Care Clinical Impression: Right calf pain Condition: Stable Instructions: ED Strain Muscle Ext Follow-Up: BECCA SLAUGHTER DO [Primary Care Provider] - Discharge Date/Time: 06/16/21 17:37
--- NOTE | 2021-06-16 17:12 | Ultrasound Report ---
PROCEDURE: Duplex Ext Veins Right INDICATIONS: calf pain without strain TECHNIQUE: Real-time imaging, as well as color and pulse Doppler interrogation, were performed of the lower extr emity deep veins from the inguinal ligament to the popliteal fossa. COMPARISON: None. FINDINGS: VASCULATURE: Normal spontaneous flow and phasicity, augmentation and waveforms, and compressibility o f the vessels from the common femoral veins through the calf veins. SOFT TISSUES: No acute abnormality. IMPRESSION: 1.No sonographic evidence of deep venous thrombus. Reviewed by: Efrain Verma MD on 06/16/2021 5:10 PM [facility] Approved by: Efrain Verma MD on 06/16/2021 5:10 PM [facility] Station ID: [id number]
[2021-06-16 17:37] VITALS: BP 121/87
== END 2021-06-16 17:37 | disposition home or self-care (01) ==
LOC: ED 15:36
DX: M79.661 Pain in right lower leg (principal)
CPT/HCPCS: 99283; 99284

== ENCOUNTER 2021-09-02 15:41 | Emergency (ER) | payer BC ==
--- NOTE | 2021-09-02 16:18 | ED Physician Documentation ---
History of Present Illness - Stated complaint Stated Complaint: FEMALE GI/HEART PINCH/SOA/HEADACHE - Chief complaint Chief Complaint: General - Additonal information Additional information: 41-year-old female presents to the emergency department for multiple concerns. 1. She reports that she had sharp nonradiating chest pain 2 days ago when jumping on a trampoline. It has occurred intermittently since. No associated nausea or vomiting. She suspects that she developed SVT after receiving a Covid vaccine but was followed up by imaging technologist and had an unremarkable echo. Denies a sensation of palpitations or lightheadedness right now. She believes that her imaging technologist is trying to schedule her for an outpatient stress test but this has not been completed. No tobacco or alcohol use. 2. Intermittent left upper quadrant abdominal pain that has been present since April 2021. She has had outpatient endoscopy and colonoscopy completed. Per patient there was suspicion of possible gastritis within the stomach as well as lymphocytic colitis. She is suspicious that she has H. pylori infection but the EGD biopsy was negative for this. She denies any melena or hematochezia. In general she has of bloating and full feeling in her left upper abdomen. Denies dysuria or hematuria. She has been told by her refrigerator assembler that she is anxious and because of this she has elected to seek GI care elsewhere. Patient would like to limit labs or imaging unless absolutely necessary today. Review of Systems Constitutional: denies: Fever, Chills Eyes: reports: Reviewed and negative Throat: reports: Reviewed and negative Cardiac: denies: Chest pain / pressure, Palpitations, Pedal edema, Calf pain Respiratory: denies: Dyspnea, Cough, Hemoptysis GI: reports: Abdominal Pain. 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 - Present Medications Home Medications: Ambulatory Orders Medication Instructions Recorded Confirmed Herbal Supplements 1 tab ORAL DAILY 09/28/17 Immune Support Herbs 1 tab ORAL DAILY 09/28/17 Multivitamin [Multiple Vitamins] 1 each PO DAILY 09/28/17 06/16/21 [place]-3/Dha/Epa/Fish Oil [Fish Oil 1 each PO DAILY 09/28/17 06/16/21 1,000 mg Softgel] - Allergies Allergies/Adverse Reactions: Allergies Allergy/AdvReac Type Severity Reaction Status Date / Time No Known Drug Allergies Allergy Verified 09/02/21 15:53 - Social History Does the pt smoke?: No Smoking Status: Never smoker Does the pt drink ETOH?: No Does the pt have substance abuse?: No - Immunizations Immunizations are current?: Yes - POLST Patient has POLST: No PD ED PE NORMAL - General General: Alert and oriented X 3, No acute distress - HEENT HEENT: Atraumatic, Moist mucous membranes - Neck Neck: Supple, no meningeal sign - Cardiac Cardiac: RRR, No murmur - Respiratory Respiratory: No respiratory distress, Clear bilaterally - Abdomen Abdomen: Normal bowel sounds, Soft. No: Non tender (Mild tenderness in the left upper quadrant without guarding or rebound. No splenomegaly.) - Back Back: No CVA TTP, No spinal TTP - Derm Derm: Normal color, Warm and dry, No rash - Extremities Extremities: No deformity, No tenderness to palpate, Normal ROM s pain - Neuro Neuro: Alert and oriented X 3, medicinal chemist 2-12 intact Eye Opening: Spontaneous Motor: Obeys Commands Verbal: Oriented GCS Score: 15 Results - Vitals Vitals: Vital Signs - 24 hr 09/02/21 09/02/21 15:47 16:37 Temperature 36.6 C Heart Rate 74 80 Respiratory 16 12 Rate Blood Pressure 117/74 117/75 O2 Saturation 99 100 Oxygen O2 Source Room air - Labs Labs: Laboratory Tests 09/02/21 09/02/21 09/02/21 16:14 16:47 16:47 WBC 7.3 RBC 4.39 Hgb 13.1 Hct 39.3 MCV 89.5 MCH 29.8 MCHC 33.3 RDW 12.2 Plt Count 216 MPV 10.4 Neut # (Auto) 4.2 Lymph # (Auto) 2.3 [place] # (Auto) 0.5 Eos # (Auto) 0.3 Baso # (Auto) 0.1 Absolute Nucleated RBC 0.00 Nucleated RBC % 0.0 Sodium 136 Potassium 3.8 Chloride 103 Carbon Dioxide 24 Anion Gap 9.0 BUN 14 Creatinine 0.7 Estimated GFR (MDRD) 91 Glucose 86 Calcium 9.0 Total Bilirubin 0.6 AST 16 ALT 21 Alkaline Phosphatase 38 L Troponin I High Sens Total Protein 7.5 Albumin 4.3 Globulin 3.2 Albumin/Globulin Ratio 1.3 Lipase 35 Urine Color YELLOW Urine Clarity CLEAR Urine pH 6.0 Ur Specific [place] 1.010 Urine Protein NEGATIVE Urine Glucose (UA) NEGATIVE Urine Ketones NEGATIVE Urine Occult Blood NEGATIVE Urine Nitrite NEGATIVE Urine Bilirubin NEGATIVE Urine Urobilinogen 0.2 (NORMAL) Ur Leukocyte Esterase NEGATIVE Ur Microscopic Review NOT INDICATED Urine Culture Comments NOT INDICATED 09/02/21 16:47 WBC RBC Hgb Hct MCV MCH MCHC RDW Plt Count MPV Neut # (Auto) Lymph # (Auto) [place] # (Auto) Eos # (Auto) Baso # (Auto) Absolute Nucleated RBC Nucleated RBC % Sodium Potassium Chloride Carbon Dioxide Anion Gap BUN Creatinine Estimated GFR (MDRD) Glucose Calcium Total Bilirubin AST ALT Alkaline Phosphatase Troponin I High Sens < 2.3 L Total Protein Albumin Globulin Albumin/Globulin Ratio Lipase Urine Color Urine Clarity Urine pH Ur Specific [place] Urine Protein Urine Glucose (UA) Urine Ketones Urine Occult Blood Urine Nitrite Urine Bilirubin Urine Urobilinogen Ur Leukocyte Esterase Ur Microscopic Review Urine Culture Comments PD MEDICAL DECISION MAKING - ED course Complexity details: reviewed results, re-evaluated patient, considered differential, d/w patient ED course: 41-year-old female presents emergency department for evaluation of 2 days intermittent chest pain that began after jumping on a trampoline. Reports a remote history of SVT after receiving a COVID-19 vaccine. Reportedly had an unremarkable echocardiogram but is scheduled for a stress test. Her EKG here is nonischemic high-sensitivity troponin is negative. She is free of chest pain at this time. Heart score is 1 and low risk for Mace. Patient will be discharged with emergent return precautions and continue follow-up with imaging technologist. Also reporting intermittent left upper quadrant abdominal pain since April 2021. Has had CT imaging that was unremarkable as well as colonoscopy and EGD. This testing showed suspicion for possible gastritis for which she was prescribed omeprazole. Also suspicion for lymphocytic colitis. Denies any melena or hematochezia. On exam minimal pain was elicited. Patient would like to defer advanced imaging if possible given that her labs are unremarkable without leukocytosis or any significant electrolyte abnormality I feel that this is safe. I have encouraged her to have continued follow-up with her refrigerator assembler. She may benefit from further treatment for her colitis but this should be done through the specialist service and not the emergency department. Emergent otherwise worrisome return precautions were discussed. Departure - Departure Disposition: 01 Home, Self Care Clinical Impression: Left sided abdominal pain Chest pain Qualifiers: Chest pain type: unspecified Qualified Code(s): R07.9 - Chest pain, unspecified Follow-Up: BECAC SLAUGHTER, [Primary Care Provider] - Comments: Pretty you are seen today in the emergency department for left-sided belly pain and chest pain. I recommend you continue close follow-up with your imaging technologist for the outpatient stress test that you have been referred for however your EKG and labs today are all essentially normal. The left-sided belly pain cause is not clear though this may be a flare of your known colitis. Your screening labs today were normal. It is important he continue follow-up with GI to determine if there is any longer-term treatment or management for this. If at any point you have sudden severe or different pain, fevers higher than 102, black or bloody stools, uncontrolled vomiting then please return to the ER for a second evaluation
[2021-09-02 16:56] LABS: BASOPHILS # (AUTO) 0.1 10^3/uL (0.0-0.1); BASOPHILS % (AUTO) 0.7 %; EOSINOPHILS # (AUTO) 0.3 10^3/uL (0.0-0.7); EOSINOPHILS % (AUTO) 3.6 %; HCT - HEMATOCRIT 39.3 % (37.0-47.0); HGB - HEMOGLOBIN 13.1 g/dL (12.0-16.0); LYMPHOCYTES # (AUTO) 2.3 10^3/uL (1.5-3.5); LYMPHOCYTES % (AUTO) 32.1 %; MEAN CORPUSCULAR HEMOGLOBIN 29.8 pg (27.0-31.0); MEAN CORPUSCULAR HGB CONC 33.3 g/dL (32.0-36.0); MEAN CORPUSCULAR VOLUME 89.5 fL (81.0-99.0); MEAN PLATELET VOLUME 10.4 fL (7.9-10.8); MONOCYTES # (AUTO) 0.5 10^3/uL (0.0-1.0); MONOCYTES % (AUTO) 6.2 %; NEUTROPHILS # (AUTO) 4.2 10^3/uL (1.5-6.6); NEUTROPHILS % (AUTO) 57.3 %; PLT - PLATELET COUNT 216 10^3/uL (130-450); RED BLOOD COUNT 4.39 10^6/uL (4.20-5.40); RED CELL DISTRIBUTION WIDTH 12.2 % (12.0-15.0); WHITE BLOOD COUNT 7.3 x10^3/uL (4.8-10.8)
[2021-09-02 17:12] LABS: ALBUMIN 4.3 g/dL (3.2-5.5); ALBUMIN/GLOBULIN RATIO 1.3 (1.0-2.2); BILIRUBIN,TOTAL 0.6 mg/dL (0.2-1.0); CREATININE 0.7 mg/dL (0.4-1.0); POTASSIUM 3.8 mmol/L (3.5-5.0); TOTAL PROTEIN 7.5 g/dL (6.7-8.2)
[2021-09-02 17:24] LABS: BILIRUBIN,URINE NEGATIVE (NEGATIVE); GLUCOSE, URINE (UA) NEGATIVE (NEGATIVE); KETONES,URINE (UA) NEGATIVE (NEGATIVE); LEUKOCYTE ESTERASE, URINE NEGATIVE (NEGATIVE); NITRITE,URINE NEGATIVE (NEGATIVE); OCCULT BLOOD,URINE NEGATIVE (NEGATIVE); PROTEIN,URINE NEGATIVE (NEGATIVE); UROBILINOGEN,URINE 0.2 (NORMAL) E.U./dL (NORMAL)
[2021-09-02 17:27] LABS: CLARITY,URINE CLEAR (CLEAR)
[2021-09-02 18:14] VITALS: BP 118/68
== END 2021-09-02 18:14 | disposition home or self-care (01) ==
LOC: ED 15:41
DX: R07.9 Chest pain, unspecified (principal); R10.12 Left upper quadrant pain
CPT/HCPCS: 36415; 80053; 81001; 81003; 83690; 84484; 85025; 87086; 99282; 99284

== ENCOUNTER 2021-11-06 16:39 | Emergency (ER) | payer BC ==
--- NOTE | 2021-11-06 16:46 | ED Physician Documentation ---
History of Present Illness - Stated complaint Stated Complaint: LOW BP/VERTIGO/NAUSEA - History obtained from History obtained from: Patient - History of Present Illness Timing: Other (Problems for more than 7 months) - Additonal information Additional information: 41-year-old female reports that after getting her Pfizer vaccination for COVID she began develop a number of different symptoms including burning sensations paresthesias and lightheadedness and dizziness with ambulation. She been in to see her primary care doctor she has had blood work ordered and done she has a follow-up in 2 days time. She is here today with ongoing symptoms and appears anxious. She is perseverating on a ultrasound that was done back in April showing something at the head of the pancreas and this was followed by a CT scan which demonstrated that it was an artifact. She has symptoms above and below the waist of pains and paresthesias. She indicates that she feels she is sleeping well but her indicates otherwise. 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 Review of Systems Constitutional: reports: Myalgias, Fatigue, Sweats. denies: Fever, Chills Ears: denies: Ear pain Nose: denies: Congestion Throat: denies: Sore throat Cardiac: reports: Chest pain / pressure, Palpitations, Calf pain. denies: Pedal edema Respiratory: reports: Dyspnea GI: reports: Abdominal Pain. denies: Vomiting, Diarrhea : denies: Dysuria, Frequency Skin: denies: Rash Musculoskeletal: reports: Extremity pain. denies: Neck pain, Back pain Neurologic: reports: Numbness. 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 - Present Medications Home Medications: Ambulatory Orders Medication Instructions Recorded Confirmed Herbal Supplements 1 tab ORAL DAILY 09/28/17 Immune Support Herbs 1 tab ORAL DAILY 09/28/17 Multivitamin [Multiple Vitamins] 1 each PO DAILY 09/28/17 06/16/21 [place]-3/Dha/Epa/Fish Oil [Fish Oil 1 each PO DAILY 09/28/17 06/16/21 1,000 mg Softgel] - Allergies Allergies/Adverse Reactions: Allergies Allergy/AdvReac Type Severity Reaction Status Date / Time No Known Drug Allergies Allergy Verified 09/02/21 15:53 - Social History Does the pt smoke?: No Smoking Status: Never smoker Does the pt drink ETOH?: No Does the pt have substance abuse?: No - Immunizations Immunizations are current?: Yes - POLST Patient has POLST: No PD ED PE NORMAL - Vitals Vital signs reviewed: Yes (Tachycardic and hypertensive) - General General: Alert and oriented X 3, Well developed/nourished, Other (Anxious appearing 6 foot tall female) - HEENT HEENT: Atraumatic, PERRL, EOMI, Ears normal, Moist mucous membranes, Pharynx benign, Dentition benign - Neck Neck: Supple, no meningeal sign, No bony TTP - Cardiac Cardiac: RRR, No murmur - Respiratory Respiratory: No respiratory distress, Clear bilaterally - Abdomen Abdomen: Normal bowel sounds, Soft, Non tender, Non distended, No organomegaly - Back Back: No CVA TTP, No spinal TTP - Derm Derm: Normal color, Warm and dry, No rash - Extremities Extremities: No deformity, No edema - Neuro Neuro: Alert and oriented X 3, floor manager 2-12 intact, No motor deficit, No sensory deficit, Normal speech Eye Opening: Spontaneous Motor: Obeys Commands Verbal: Oriented GCS Score: 15 - Psych Psych: Normal mood, Normal affect Results - Vitals Vitals: Vital Signs - 24 hr 11/06/21 11/06/21 16:42 16:50 Temperature 36.3 C L Heart Rate 102 H 80 Respiratory 20 16 Rate Blood Pressure 128/98 H 122/95 H O2 Saturation 100 99 Oxygen O2 Source Room air - EKG (time done) 1736 Rate: Rate (enter#) (67) Rhythm: NSR [place]: LAD Compare to prior EKG: Changed from prior EKG (SPT 05-04-2021 the interventricular conduction delay has resolved. ) Computer interpretation: Agree with computer - Labs Labs: Laboratory Tests 11/06/21 11/06/21 11/06/21 17:26 17:26 17:26 WBC 6.3 RBC 4.41 Hgb 13.2 Hct 38.6 MCV 87.5 MCH 29.9 MCHC 34.2 RDW 12.3 Plt Count 230 MPV 10.1 Neut # (Auto) 3.5 Lymph # (Auto) 2.2 [place] # (Auto) 0.4 Eos # (Auto) 0.2 Baso # (Auto) 0.0 Absolute Nucleated RBC 0.00 Nucleated RBC % 0.0 Sodium 138 Potassium 3.7 Chloride 105 Carbon Dioxide 24 Anion Gap 9.0 BUN 10 Creatinine 0.7 Estimated GFR (MDRD) 91 Glucose 100 Calcium 9.1 Total Bilirubin 0.5 AST 15 ALT 18 Alkaline Phosphatase 33 L Troponin I High Sens Total Protein 7.1 Albumin 4.0 Globulin 3.1 Albumin/Globulin Ratio 1.3 Lipase 39 TSH 0.64 Urine Color Urine Clarity Urine pH Ur Specific [place] Urine Protein Urine Glucose (UA) Urine Ketones Urine Occult Blood Urine Nitrite Urine Bilirubin Urine Urobilinogen Ur Leukocyte Esterase Ur Microscopic Review Urine Culture Comments Urine HCG, Qual 11/06/21 11/06/21 17:26 17:54 WBC RBC Hgb Hct MCV MCH MCHC RDW Plt Count MPV Neut # (Auto) Lymph # (Auto) [place] # (Auto) Eos # (Auto) Baso # (Auto) Absolute Nucleated RBC Nucleated RBC % Sodium Potassium Chloride Carbon Dioxide Anion Gap BUN Creatinine Estimated GFR (MDRD) Glucose Calcium Total Bilirubin AST ALT Alkaline Phosphatase Troponin I High Sens < 2.3 L Total Protein Albumin Globulin Albumin/Globulin Ratio Lipase TSH Urine Color YELLOW Urine Clarity CLEAR Urine pH 7.0 Ur Specific [place] 1.010 Urine Protein NEGATIVE Urine Glucose (UA) NEGATIVE Urine Ketones NEGATIVE Urine Occult Blood NEGATIVE Urine Nitrite NEGATIVE Urine Bilirubin NEGATIVE Urine Urobilinogen 0.2 (NORMAL) Ur Leukocyte Esterase NEGATIVE Ur Microscopic Review NOT INDICATED Urine Culture Comments NOT INDICATED Urine HCG, Qual NEGATIVE PD MEDICAL DECISION MAKING - ED course Complexity details: considered differential, d/w patient ED course: 41-year-old female with multiple somatic complaints with no findings on work-up. I discussed these findings with the patient the reassuring part of no life- threatening abnormalities infection no abnormalities found. I have asked patient to follow-up with her primary care about a referral to a tilt table. We did discuss stress and depression. The patient continues to have perseveration over her health. Departure - Departure Disposition: 01 Home, Self Care Clinical Impression: Anxiety about health, Stress reaction Condition: Stable Instructions: ED Stress React Follow-Up: BECCA SLAUGHTER DO [Primary Care Provider] - Comments: Pretty today we did not find any abnormalities on testing. We looked at your blood counts your electrolytes kidney liver and pancreas function as well as your urinalysis, chest x-ray, electrocardiogram and fluid volume and we found no abnormalities. This is reassuring that there is not a life-threatening process going on. Some of the symptoms you are having including the dizziness and lightheadedness may be related to postural orthostatic hypotension and this is best evaluated by a practitioner with a tilt table. Follow-up with your primary for referral. Discharge Date/Time: 11/06/21 19:01
--- OUTSIDE RECORDS SUMMARY | 2021-11-06 17:06 | EXTERNAL MEDICAL SUMMARY RPT | Continuity of Care Document ---
:1980 Author Organization [facility] Address [address] [phone] Phone Allergies No information. Encounters No information. Medications No information. Problems date description facility [id number] Radiculopathy, cervical region [facility] [id number] Headache, unspecified [facility] [id number] Dizziness [facility] Results No information.
[2021-11-06 17:14] VITALS: BP 122/95
[2021-11-06 17:50] LABS: HCT - HEMATOCRIT 38.6 % (37.0-47.0); HGB - HEMOGLOBIN 13.2 g/dL (12.0-16.0); MEAN CORPUSCULAR HEMOGLOBIN 29.9 pg (27.0-31.0); MEAN CORPUSCULAR HGB CONC 34.2 g/dL (32.0-36.0); MEAN CORPUSCULAR VOLUME 87.5 fL (81.0-99.0); RED BLOOD COUNT 4.41 10^6/uL (4.20-5.40); WHITE BLOOD COUNT 6.3 x10^3/uL (4.8-10.8)
[2021-11-06 17:51] LABS: BASOPHILS % (AUTO) 0.6 %; EOSINOPHILS % (AUTO) 3.5 %; LYMPHOCYTES % (AUTO) 34.6 %; MEAN PLATELET VOLUME 10.1 fL (7.9-10.8); MONOCYTES % (AUTO) 6.2 %; NEUTROPHILS % (AUTO) 54.9 %; PLT - PLATELET COUNT 230 10^3/uL (130-450); RED CELL DISTRIBUTION WIDTH 12.3 % (12.0-15.0)
[2021-11-06 17:52] LABS: EOSINOPHILS # (AUTO) 0.2 10^3/uL (0.0-0.7); LYMPHOCYTES # (AUTO) 2.2 10^3/uL (1.5-3.5); MONOCYTES # (AUTO) 0.4 10^3/uL (0.0-1.0); NEUTROPHILS # (AUTO) 3.5 10^3/uL (1.5-6.6)
[2021-11-06 18:01] LABS: ALBUMIN/GLOBULIN RATIO 1.3 (1.0-2.2); BILIRUBIN,TOTAL 0.5 mg/dL (0.2-1.0); CALCIUM 9.1 mg/dL (8.5-10.3); CREATININE 0.7 mg/dL (0.4-1.0); POTASSIUM 3.7 mmol/L (3.5-5.0); TOTAL PROTEIN 7.1 g/dL (6.7-8.2)
[2021-11-06 18:18] LABS: BILIRUBIN,URINE NEGATIVE (NEGATIVE); GLUCOSE, URINE (UA) NEGATIVE (NEGATIVE); KETONES,URINE (UA) NEGATIVE (NEGATIVE); LEUKOCYTE ESTERASE, URINE NEGATIVE (NEGATIVE); NITRITE,URINE NEGATIVE (NEGATIVE); OCCULT BLOOD,URINE NEGATIVE (NEGATIVE); PROTEIN,URINE NEGATIVE (NEGATIVE); UROBILINOGEN,URINE 0.2 (NORMAL) E.U./dL (NORMAL)
[2021-11-06 18:19] LABS: HCG UR QUAL NEGATIVE
[2021-11-06 18:21] LABS: CLARITY,URINE CLEAR (CLEAR)
--- NOTE | 2021-11-06 22:21 | XRAY Report ---
PROCEDURE: Chest 1 View X-Ray INDICATIONS: chest pain TECHNIQUE: One view of the chest was acquired. COMPARISON: Prior chest plain films 05/04/2021, 12/11/2020, and 09/28/2017 reviewed FINDINGS: Surgical changes and devices: None. Lungs and pleura: No pleural effusions or pneumothorax. Lungs are clear. Mediastinum: Mediastinal contours appear normal. Heart size is normal. Bones and chest wall: No suspicious bony lesions. Overlying soft tissues appear unremarkable. IMPRESSION: No source of chest pain is identified. No pneumonia is suspected. Reviewed by: Rachid Galindo MD on 11/06/2021 10:20 PM PDT Approved by: Rcahid Galindo MD on 11/06/2021 10:20 PM PDT Station ID: [id number]
== END 2021-11-06 19:01 | disposition home or self-care (01) ==
LOC: ED 16:39
DX: F41.8 Other specified anxiety disorders (principal); F43.0 Acute stress reaction
CPT/HCPCS: 36415; 80053; 81001; 81003; 81025; 83690; 84443; 84484; 85025; 87086; 93005; 99283; 99284

== ENCOUNTER 2022-02-23 11:01 | Emergency (ER) | payer BC ==
[2022-02-23 11:15] VITALS: BP 125/87
[2022-02-23 11:34] LABS: BILIRUBIN,URINE NEGATIVE (NEGATIVE); GLUCOSE, URINE (UA) NEGATIVE (NEGATIVE); KETONES,URINE (UA) NEGATIVE (NEGATIVE); LEUKOCYTE ESTERASE, URINE NEGATIVE (NEGATIVE); NITRITE,URINE NEGATIVE (NEGATIVE); OCCULT BLOOD,URINE TRACE-LYSE (NEGATIVE); PROTEIN,URINE NEGATIVE (NEGATIVE); UROBILINOGEN,URINE 0.2 (NORMAL) E.U./dL (NORMAL)
--- NOTE | 2022-02-23 11:39 | ED Physician Documentation ---
History of Present Illness - Stated complaint Stated Complaint: IRREGULAR HEATBEAT, SIDE PX - Chief complaint Chief Complaint: Abd Pain - Additonal information Additional information: 41 female presents emergency department for a constellation of symptoms. Predominantly she is focused on right upper quadrant abdominal pain that she feels radiates to the right lower quadrant. Symptoms have been intermittently present for a few weeks. No fevers vomiting. She does have a history of colitis but states that this feels different. She is also having some intermittent chest pain pressure and a feeling of palpitations. She had an episode on Monday where she had sudden numbness in the right face. She did go to [facility] reportedly had a negative CT. At that time that she was there she was reportedly told that her EKG showed atrial enlargement. She is wondering if we could perhaps do an echocardiogram today. She is also reporting vague and intermittent bouts of dizziness. She is working with her primary care provider and has referrals to cardiology as well as neurology. No history of tobacco use. No hypertension. Does have a remote history of SVT Review of Systems Constitutional: denies: Fever, Chills Eyes: reports: Reviewed and negative Cardiac: reports: Chest pain / pressure, Palpitations Respiratory: denies: Dyspnea, Cough GI: reports: Abdominal Pain. denies: Nausea, Vomiting : denies: Dysuria, Frequency, Hesitancy Skin: reports: Reviewed and negative Musculoskeletal: reports: Reviewed and negative Neurologic: reports: Reviewed and negative PD PAST MEDICAL HISTORY - Past Medical History Cardiovascular: None Respiratory: None Neuro: None Endocrine/Autoimmune: None GI: None TEXTILE SCREEN MAKER: None : None HEENT: None Psych: None Musculoskeletal: None Derm: None - Past Surgical History Past Surgical History: Yes /TEXTILE SCREEN MAKER: Dilation and currettage - Present Medications Home Medications: Ambulatory Orders Medication Instructions Recorded Confirmed Herbal Supplements 1 tab ORAL DAILY 09/28/17 Immune Support Herbs 1 tab ORAL DAILY 09/28/17 Multivitamin [Multiple Vitamins] 1 each PO DAILY 09/28/17 06/16/21 [place]-3/Dha/Epa/Fish Oil [Fish Oil 1 each PO DAILY 09/28/17 06/16/21 1,000 mg Softgel] - Allergies Allergies/Adverse Reactions: Allergies Allergy/AdvReac Type Severity Reaction Status Date / Time epinephrine Allergy Unknown Verified 02/23/22 11:16 - Social History Does the pt smoke?: No Smoking Status: Never smoker Does the pt drink ETOH?: No Does the pt have substance abuse?: No - Immunizations Immunizations are current?: Yes - POLST Patient has POLST: No PD ED PE NORMAL - General General: Alert and oriented X 3, No acute distress, Well developed/nourished - HEENT HEENT: Atraumatic, Moist mucous membranes - Neck Neck: Supple, no meningeal sign, No adenopathy - Cardiac Cardiac: RRR, No murmur, No gallop - Respiratory Respiratory: No respiratory distress, Clear bilaterally - Abdomen Abdomen: Normal bowel sounds, Soft. No: Non tender (mild non focal RUQ abd pain without guarding or rebound) - Back Back: No CVA TTP, No spinal TTP - Derm Derm: Normal color, Warm and dry - Extremities Extremities: No deformity, No tenderness to palpate, Normal ROM s pain - Neuro Neuro: Alert and oriented X 3, stem roller 2-12 intact Eye Opening: Spontaneous Motor: Obeys Commands Verbal: Oriented GCS Score: 15 - Psych Psych: Normal mood Results - Vitals Vitals: Vital Signs - 24 hr 02/23/22 11:09 Temperature 36.3 C L Heart Rate 77 Respiratory 20 Rate Blood Pressure 125/87 H O2 Saturation 100 Oxygen O2 Source Room air - EKG (time done) 1107 Rate: Rate (enter#) (74) Rhythm: NSR [place]: Normal Intervals: Normal ND. No: Prolonged QT QRS: Normal Ischemia: Non specific changes (t wave flattening) Compare to prior EKG: Unchanged from prior EKG Computer interpretation: Agree with computer - Labs Labs: Laboratory Tests 02/23/22 02/23/22 02/23/22 11:17 11:40 11:40 WBC 5.5 RBC 4.43 Hgb 13.2 Hct 38.7 MCV 87.4 MCH 29.8 MCHC 34.1 RDW 12.8 Plt Count 243 MPV 10.1 Neut # (Auto) 3.2 Lymph # (Auto) 1.7 [place] # (Auto) 0.4 Eos # (Auto) 0.2 Baso # (Auto) 0.1 Absolute Nucleated RBC 0.00 Nucleated RBC % 0.0 Sodium 136 Potassium 3.7 Chloride 107 Carbon Dioxide 23 Anion Gap 6.0 BUN 11 Creatinine 0.6 Estimated GFR (MDRD) 109 Glucose 102 H Calcium 9.2 Total Bilirubin 0.8 AST 16 ALT 18 Alkaline Phosphatase 33 L Total Protein 7.6 Albumin 4.2 Globulin 3.4 Albumin/Globulin Ratio 1.2 Lipase 41 Urine Color YELLOW Urine Clarity CLEAR Urine pH 7.0 Ur Specific [place] <=1.005 Urine Protein NEGATIVE Urine Glucose (UA) NEGATIVE Urine Ketones NEGATIVE Urine Occult Blood TRACE-LYSE Urine Nitrite NEGATIVE Urine Bilirubin NEGATIVE Urine Urobilinogen 0.2 (NORMAL) Ur Leukocyte Esterase NEGATIVE Ur Microscopic Review NOT INDICATED Urine Culture Comments NOT INDICATED PD MEDICAL DECISION MAKING - ED course Complexity details: reviewed results, re-evaluated patient, considered differential, d/w patient ED course: 41-year-old female presents emergency department for evaluation of a number of symptoms that include intermittent dizziness, brief episode of numbness on the right side of her face this weekend, about 3 to 4 weeks right upper quadrant abdominal pain. She states that she does not trust her body anymore. She is being followed closely by an lockstitch binder as well as having received referral to cardiology and neurology. Here in the emergency department her screening EKG shows sinus rhythm. It is nonischemic. Her troponin is negative. Her vital signs while here in the emergency department have been unremarkable. While here on the monitor we have not noted any arrhythmia or abnormal ectopy. Her blood count was without acute worrisome findings specifically no leukocytosis or anemia. Her electrolytes are also essentially unremarkable. Urine showed no signs of infection or hematuria. She had no focal deficits therefore advanced imaging was deferred. I did review the patient's CT imaging of her abdomen pelvis completed in April 2021. At that time it also included an abdominal ultrasound. There were no acute worrisome findings on either of these imaging studies. Today here in the e mergency department I also was unable to elicit any significant abdominal tenderness. She reported mild right upper quadrant pain but there is no guarding or rebound. Negative Doss's. Given imaging in April that did not show any worrisome findings it is unlikely that she would have any advancement of biliary or gallbladder disease over the last 8 to 9 months therefore we deferred ultrasound today. Patient does seem frustrated and anxious. We discussed the unremarkable labs as well as reassuring EKG. She is stable for discharge home to continue close follow-up with her primary care provider. Departure - Departure Disposition: 01 Home, Self Care Clinical Impression: Right upper quadrant abdominal pain, Dizziness Chest pain Qualifiers: Chest pain type: unspecified Qualified Code(s): R07.9 - Chest pain, unspecified Condition: Stable Record reviewed to determine appropriate education?: Yes Comments: Pretty was seen today in the emergency department because for few weeks you have been having some right upper quadrant abdominal pain. You have also recently experienced some chest discomfort as well as had some numbness in your face. Here in the emergency department your screening EKG was essentially unchanged from the one completed in April 2021. Today your CBC is normal. Your screening electrolytes are also essentially normal. There are no abnormal liver function tests. I think it is important to continue to discuss the constellation of symptoms that you are having with your primary care doctor. I think that continuing to follow-up with neurology would be beneficial. They may want to consider further testing for POTS and/or referral for an outpatient echocardiogram. Reasons to return to the emergency department would include sudden facial droop or weakness in your arms or legs. Any fainting episodes should also be seen through the emergency department. I do recommend that you avoid any driving until seen by your primary care provider
[2022-02-23 11:43] LABS: CLARITY,URINE CLEAR (CLEAR)
[2022-02-23 11:47] LABS: BASOPHILS # (AUTO) 0.1 10^3/uL (0.0-0.1); BASOPHILS % (AUTO) 0.9 %; EOSINOPHILS # (AUTO) 0.2 10^3/uL (0.0-0.7); EOSINOPHILS % (AUTO) 2.7 %; HCT - HEMATOCRIT 38.7 % (37.0-47.0); HGB - HEMOGLOBIN 13.2 g/dL (12.0-16.0); LYMPHOCYTES # (AUTO) 1.7 10^3/uL (1.5-3.5); LYMPHOCYTES % (AUTO) 30.7 %; MEAN CORPUSCULAR HEMOGLOBIN 29.8 pg (27.0-31.0); MEAN CORPUSCULAR HGB CONC 34.1 g/dL (32.0-36.0); MEAN CORPUSCULAR VOLUME 87.4 fL (81.0-99.0); MEAN PLATELET VOLUME 10.1 fL (7.9-10.8); MONOCYTES # (AUTO) 0.4 10^3/uL (0.0-1.0); MONOCYTES % (AUTO) 6.4 %; NEUTROPHILS # (AUTO) 3.2 10^3/uL (1.5-6.6); NEUTROPHILS % (AUTO) 58.9 %; PLT - PLATELET COUNT 243 10^3/uL (130-450); RED BLOOD COUNT 4.43 10^6/uL (4.20-5.40); RED CELL DISTRIBUTION WIDTH 12.8 % (12.0-15.0); WHITE BLOOD COUNT 5.5 x10^3/uL (4.8-10.8)
[2022-02-23 11:58] LABS: ALBUMIN 4.2 g/dL (3.2-5.5); ALBUMIN/GLOBULIN RATIO 1.2 (1.0-2.2); BILIRUBIN,TOTAL 0.8 mg/dL (0.2-1.0); CALCIUM 9.2 mg/dL (8.5-10.3); CREATININE 0.6 mg/dL (0.4-1.0); POTASSIUM 3.7 mmol/L (3.5-5.0); TOTAL PROTEIN 7.6 g/dL (6.7-8.2)
== END 2022-02-23 12:19 | disposition home or self-care (01) ==
LOC: ED 11:01
DX: R10.31 Right lower quadrant pain (principal); R42 Dizziness and giddiness; R07.9 Chest pain, unspecified
CPT/HCPCS: 36415; 80053; 81001; 81003; 83690; 84484; 84702; 85025; 87086; 93005; 99284

== ENCOUNTER 2022-02-25 14:24 | Emergency (ER) | payer BC ==
[2022-02-25 15:00] LABS: BASOPHILS % (AUTO) 0.5 %; EOSINOPHILS # (AUTO) 0.1 10^3/uL (0.0-0.7); EOSINOPHILS % (AUTO) 1.5 %; HCT - HEMATOCRIT 41.3 % (37.0-47.0); HGB - HEMOGLOBIN 13.9 g/dL (12.0-16.0); LYMPHOCYTES % (AUTO) 23.7 %; MEAN CORPUSCULAR HEMOGLOBIN 29.4 pg (27.0-31.0); MEAN CORPUSCULAR HGB CONC 33.7 g/dL (32.0-36.0); MEAN CORPUSCULAR VOLUME 87.5 fL (81.0-99.0); MEAN PLATELET VOLUME 10.3 fL (7.9-10.8); MONOCYTES # (AUTO) 0.4 10^3/uL (0.0-1.0); MONOCYTES % (AUTO) 4.5 %; NEUTROPHILS % (AUTO) 69.5 %; PLT - PLATELET COUNT 237 10^3/uL (130-450); RED BLOOD COUNT 4.72 10^6/uL (4.20-5.40); RED CELL DISTRIBUTION WIDTH 12.6 % (12.0-15.0); WHITE BLOOD COUNT 8.6 x10^3/uL (4.8-10.8)
--- NOTE | 2022-02-25 15:07 | XRAY Report ---
PROCEDURE: Chest 1 View X-Ray INDICATIONS: Chest Pain TECHNIQUE: One view of the chest was acquired. COMPARISON: Single view the chest dated 11/06/2021. FINDINGS: Surgical changes and devices: None. Lungs and pleura: No pleural effusions or pneumothorax. Lungs are clear. Mediastinum: Mediastinal contours appear normal. Heart size is normal. Bones and chest wall: No suspicious bony lesions. Overlying soft tissues appear unremarkable. IMPRESSION: No acute cardiopulmonary findings. Reviewed by: Jordana Cardona MD on 02/25/2022 3:05 PM PDT Approved by: Jordana Cardona MD on 02/25/2022 3:05 PM PDT Station ID: [id number]
[2022-02-25] MEDS ORDERED: METOPROLOL 5 MG/5 ML VIAL IVP STA (15:08)
[2022-02-25] MEDS ORDERED: LORazepam 2 MG/ML VIAL IVP STA (15:08)
--- NOTE | 2022-02-25 15:16 | ED Physician Documentation ---
History of Present Illness - Stated complaint Stated Complaint: CHEST PX/METALIC TASTE - Chief complaint Chief Complaint: Cardiac - History obtained from History obtained from: Patient - History of Present Illness Timing: Today Pain level max: 2 Pain level now: 2 - Additonal information Additional information: Patient is a 41-year-old female who presents to the emergency department multiple complaints. The first is left upper chest burning, this is been present for about a year. She also describes palpitations over the past year. She describes left-sided facial paresthesias for the last several months. Recently seen at [facility] in [place] for same. Negative CT perfusion, CT angiogram head and neck. Describes episodes of dizziness and near syncope. She is being worked up by her doctor for these episodes. Nothing seems to make it better or worse. No fevers. No chills. No abdominal pain. Occasional nausea but no vomiting. No diarrhea. No leg swelling. Patient states that she has an enlarged liver and her doctor is going to order a hepatitis panel for her. She is concerned about potential hepatitis. Review of Systems Constitutional: denies: Fever, Chills Respiratory: denies: Cough PD PAST MEDICAL HISTORY - Past Medical History Cardiovascular: None Respiratory: None Neuro: None Endocrine/Autoimmune: None GI: None DIVISION ENGINEER: None : None HEENT: None Psych: None Musculoskeletal: None Derm: None - Past Surgical History Past Surgical History: Yes /DIVISION ENGINEER: Dilation and currettage - Present Medications Home Medications: Ambulatory Orders Medication Instructions Recorded Confirmed Herbal Supplements 1 tab ORAL DAILY 09/28/17 Immune Support Herbs 1 tab ORAL DAILY 09/28/17 Multivitamin [Multiple Vitamins] 1 each PO DAILY 09/28/17 06/16/21 [place]-3/Dha/Epa/Fish Oil [Fish Oil 1 each PO DAILY 09/28/17 06/16/21 1,000 mg Softgel] Propranolol [Inderal] 10 mg PO BID #60 tablet 02/25/22 - Allergies Allergies/Adverse Reactions: Allergies Allergy/AdvReac Type Severity Reaction Status Date / Time epinephrine Allergy Unknown Verified 02/25/22 14:42 - Social History Does the pt smoke?: No Smoking Status: Never smoker Does the pt drink ETOH?: No Does the pt have substance abuse?: No - Immunizations Immunizations are current?: Yes - POLST Patient has POLST: No PD ED PE NORMAL - Vitals Vital signs reviewed: Yes - General General: Alert and oriented X 3, No acute distress - HEENT HEENT: PERRL, Moist mucous membranes - Neck Neck: Supple, no meningeal sign - Cardiac Cardiac: RRR, Strong equal pulses - Respiratory Respiratory: No respiratory distress, Clear bilaterally - Abdomen Abdomen: Soft, Non tender, Non distended - Derm Derm: Warm and dry - Neuro Neuro: Alert and oriented X 3 - Psych Psych: Other (Anxious appearing, pressured speech) Results - Vitals Vitals: Vital Signs - 24 hr 02/25/22 02/25/22 14:31 17:31 Temperature 36.1 C L Heart Rate 87 73 Respiratory 20 20 Rate Blood Pressure 140/102 H 110/79 O2 Saturation 100 100 Oxygen O2 Source Room air - EKG (time done) 1432 Rate: Rate (enter#) (76) Rhythm: NSR [place]: Normal Intervals: Normal NE QRS: Normal Ischemia: Normal ST segments - Labs Labs: Laboratory Tests 02/25/22 02/25/22 02/25/22 14:55 14:55 14:55 WBC 8.6 RBC 4.72 Hgb 13.9 Hct 41.3 MCV 87.5 MCH 29.4 MCHC 33.7 RDW 12.6 Plt Count 237 MPV 10.3 Neut # (Auto) 6.0 Lymph # (Auto) 2.0 [place] # (Auto) 0.4 Eos # (Auto) 0.1 Baso # (Auto) 0.0 Absolute Nucleated RBC 0.00 Nucleated RBC % 0.0 ESR Sodium 136 Potassium 3.7 Chloride 101 Carbon Dioxide 25 Anion Gap 10.0 BUN 12 Creatinine 0.8 Estimated GFR (MDRD) 78 L Glucose 91 Calcium 9.4 Phosphorus 3.3 Magnesium 2.0 Total Bilirubin 0.7 AST 19 ALT 20 Alkaline Phosphatase 37 L Troponin I High Sens < 2.3 L C-Reactive Protein Total Protein 8.4 H Albumin 4.8 Globulin 3.6 Albumin/Globulin Ratio 1.3 Lipase 38 TSH Free T4 Urine Color Urine Clarity Urine pH Ur Specific [place] Urine Protein Urine Glucose (UA) Urine Ketones Urine Occult Blood Urine Nitrite Urine Bilirubin Urine Urobilinogen Ur Leukocyte Esterase Ur Microscopic Review Urine Culture Comments Urine HCG, Qual 02/25/22 02/25/22 02/25/22 14:55 14:55 14:55 WBC RBC Hgb Hct MCV MCH MCHC RDW Plt Count MPV Neut # (Auto) Lymph # (Auto) [place] # (Auto) Eos # (Auto) Baso # (Auto) Absolute Nucleated RBC Nucleated RBC % ESR 7 Sodium Potassium Chloride Carbon Dioxide Anion Gap BUN Creatinine Estimated GFR (MDRD) Glucose Calcium Phosphorus Magnesium Total Bilirubin AST ALT Alkaline Phosphatase Troponin I High Sens C-Reactive Protein < 1.0 Total Protein Albumin Globulin Albumin/Globulin Ratio Lipase TSH 1.32 Free T4 Urine Color Urine Clarity Urine pH Ur Specific [place] Urine Protein Urine Glucose (UA) Urine Ketones Urine Occult Blood Urine Nitrite Urine Bilirubin Urine Urobilinogen Ur Leukocyte Esterase Ur Microscopic Review Urine Culture Comments Urine HCG, Qual 02/25/22 02/25/22 14:55 15:15 WBC RBC Hgb Hct MCV MCH MCHC RDW Plt Count MPV Neut # (Auto) Lymph # (Auto) [place] # (Auto) Eos # (Auto) Baso # (Auto) Absolute Nucleated RBC Nucleated RBC % ESR Sodium Potassium Chloride Carbon Dioxide Anion Gap BUN Creatinine Estimated GFR (MDRD) Glucose Calcium Phosphorus Magnesium Total Bilirubin AST ALT Alkaline Phosphatase Troponin I High Sens C-Reactive Protein Total Protein Albumin Globulin Albumin/Globulin Ratio Lipase TSH Free T4 0.98 Urine Color YELLOW Urine Clarity CLEAR Urine pH 6.0 Ur Specific [place] <=1.005 Urine Protein NEGATIVE Urine Glucose (UA) NEGATIVE Urine Ketones NEGATIVE Urine Occult Blood NEGATIVE Urine Nitrite NEGATIVE Urine Bilirubin NEGATIVE Urine Urobilinogen 0.2 (NORMAL) Ur Leukocyte Esterase NEGATIVE Ur Microscopic Review NOT INDICATED Urine Culture Comments NOT INDICATED Urine HCG, Qual NEGATIVE - Rads (name of study) cxr Radiology: Final report received, EMP read contemporaneously, See rad report (no acute abnormality) PD MEDICAL DECISION MAKING - ED course Complexity details: reviewed results, re-evaluated patient, considered differential, d/w patient, d/w family ED course: Symptoms improved in the emergency department. Patient is asymptomatic on serial exam. I did review her records from [facility] in [place], there were no significant abnormalities found on her testing. Normal thyroid studies. Negative sed rate and CRP. No significant electrolyte abnormalities. We will recommend that she follow-up with her doctor for further care. We could trial her on a low-dose of propanolol to see if this helps her palpitations. Counseled regarding hypotension. Patient and family counseled regarding signs and symptoms for which I believe and urgent re-evaluation would be necessary. Patient with good understanding of and agreement to plan and is comfortable going home at this time This document was made in part using voice recognition software. While efforts are made to proofread this document, sound alike and grammatical errors may occur. Departure - Departure Disposition: 01 Home, Self Care Clinical Impression: Palpitations, Paresthesias Chest pain Qualifiers: Chest pain type: unspecified Qualified Code(s): R07.9 - Chest pain, unspecified Abdominal pain Qualifiers: Abdominal location: unspecified location Qualified Code(s): R10.9 - Unspecified abdominal pain Condition: Good Instructions: ED Chest Pain Atypical Unkn Cause, ED Palpitations, ED Paraesthesias Follow-Up: PIERO LOPEZ MD [Primary Care Provider] - Within 1 week Prescriptions: Propranolol [Inderal] 10 mg PO BID #60 tablet Comments: The cause of your symptoms is unclear. Your thyroid testing is normal today. Your sed rate and CRP are normal. Your electrolytes and blood counts are normal. Your EKG does not show any acute abnormalities. Your doctor may want to order an echocardiogram of your heart. A referral to rheumatology may help to further evaluate your symptoms, this would need to be provided by your doctor. Please return if you worsen. We will try you on a low-dose of propanolol to see if this helps your symptoms. Your prescription was sent to [facility] in [place]. Discharge Date/Time: 02/25/22 17:33
[2022-02-25 15:21] LABS: ALBUMIN 4.8 g/dL (3.2-5.5); ALBUMIN/GLOBULIN RATIO 1.3 (1.0-2.2); BILIRUBIN,TOTAL 0.7 mg/dL (0.2-1.0); CALCIUM 9.4 mg/dL (8.5-10.3); CREATININE 0.8 mg/dL (0.4-1.0); PHOSPHORUS 3.3 mg/dL (2.5-4.6); POTASSIUM 3.7 mmol/L (3.5-5.0); TOTAL PROTEIN 8.4 g/dL (6.7-8.2)
[2022-02-25 15:29] LABS: BILIRUBIN,URINE NEGATIVE (NEGATIVE); GLUCOSE, URINE (UA) NEGATIVE (NEGATIVE); KETONES,URINE (UA) NEGATIVE (NEGATIVE); LEUKOCYTE ESTERASE, URINE NEGATIVE (NEGATIVE); NITRITE,URINE NEGATIVE (NEGATIVE); OCCULT BLOOD,URINE NEGATIVE (NEGATIVE); PROTEIN,URINE NEGATIVE (NEGATIVE); UROBILINOGEN,URINE 0.2 (NORMAL) E.U./dL (NORMAL)
[2022-02-25 15:33] LABS: CLARITY,URINE CLEAR (CLEAR); HCG UR QUAL NEGATIVE
[2022-02-25 17:32] VITALS: BP 110/79
[2022-02-26 03:08] LABS: HBsAG SCREEN Negative (Negative); HCV AB <0.1 s/co ratio (0.0-0.9); HEPATITIS B CORE IGM AB Negative (Negative)
== END 2022-02-25 17:33 | disposition home or self-care (01) ==
LOC: ED 14:24
DX: R29.810 Facial weakness (principal); R00.2 Palpitations; R07.9 Chest pain, unspecified; R10.9 Unspecified abdominal pain
CPT/HCPCS: 36415; 80053; 81001; 81003; 81025; 83690; 83735; 84100; 84439; 84443; 84484; 85025; 85651; 86140; 86705; 86709; 86803; 87086; 87340; 93005; 99284

== ENCOUNTER 2022-03-18 08:00 | Outpatient (CLI) | payer BC ==
--- NOTE | 2022-03-18 16:56 | Ultrasound Report ---
PROCEDURE: Abdomen Complete INDICATIONS: ABD PAIN TECHNIQUE: Real-time scanning was performed of the abdominal and retroperitoneal organs, with image documentatio n. COMPARISON: CT dated 05/04/2021 FINDINGS: Liver: Liver is enlarged measuring 20.5 cm and demonstrates no focal mass. Gallbladder: Is within normal limits Biliary ducts: Intrahepatic bile ducts are non-dilated. Extrahepatic bile duct caliber measures 4 m m. Normal is 6-7 mm or less in diameter, or 10 mm or less post-cholecystectomy. Pancreas: Visualized portions of the pancreas are sonographically normal. Spleen: Spleen is normal in size and homogeneous in echotexture. Kidneys: Kidneys are normal in size and echotexture. Right kidney measures 12.4 cm long; left kidne y measures 12.4 cm long. No hydronephrosis or nephrolithiasis. No solid masses. Aorta: Visualized aorta is normal in caliber at less than 3 cm. Iliacs: Proximal common iliac arteries are normal in caliber at less than 2.5 cm. IVC: Intrahepatic inferior vena cava is patent. Miscellaneous: No free abdominal fluid. Appendix not seen. No evidence of appendicitis. IMPRESSION: 1. Hepatomegaly, possibly constitutional. No focal hepatic mass. 2. No acute process. Reviewed by: Sagar Rojas MD on 03/18/2022 4:55 PM PDT Approved by: Sagar Rojas MD on 03/18/2022 4:55 PM PDT Station ID: [id number]
== END 2022-03-18 08:01 | disposition home or self-care (01) ==
LOC: DI 08:00
DX: R10.12 Left upper quadrant pain (principal); R10.31 Right lower quadrant pain; R16.0 Hepatomegaly, not elsewhere classified

== ENCOUNTER 2023-01-13 13:31 | Outpatient (CLI) | payer BC ==
[2023-01-13 14:02] LABS: BASOPHILS # (AUTO) 0.1 10^3/uL (0.0-0.1); BASOPHILS % (AUTO) 1.1 %; EOSINOPHILS # (AUTO) 0.1 10^3/uL (0.0-0.7); HCT - HEMATOCRIT 41.8 % (37.0-47.0); HGB - HEMOGLOBIN 14.2 g/dL (12.0-16.0); LYMPHOCYTES % (AUTO) 37.2 %; MEAN CORPUSCULAR HEMOGLOBIN 29.2 pg (27.0-31.0); MEAN CORPUSCULAR VOLUME 85.8 fL (81.0-99.0); MEAN PLATELET VOLUME 10.1 fL (7.9-10.8); MONOCYTES # (AUTO) 0.3 10^3/uL (0.0-1.0); MONOCYTES % (AUTO) 6.1 %; NEUTROPHILS # (AUTO) 2.9 10^3/uL (1.5-6.6); NEUTROPHILS % (AUTO) 53.4 %; PLT - PLATELET COUNT 271 10^3/uL (130-450); RED BLOOD COUNT 4.87 10^6/uL (4.20-5.40); RED CELL DISTRIBUTION WIDTH 13.4 % (12.0-15.0); WHITE BLOOD COUNT 5.4 x10^3/uL (4.8-10.8)
[2023-01-13 14:15] LABS: ALBUMIN 4.6 g/dL (3.2-5.5); ALBUMIN/GLOBULIN RATIO 1.5 (1.0-2.2); ALKALINE PHOSPHATASE 30 IU/L (42-121); ALT ALANINE AMINOTRANSFERASE 28 IU/L (10-60); AST ASPARTATE AMINOTRANSFERASE 28 IU/L (10-42); BILIRUBIN,TOTAL 0.7 mg/dL (0.2-1.0); BUN - BLOOD UREA NITROGEN 6 mg/dL (6-20); CALCIUM 9.5 mg/dL (8.5-10.3); CARBON DIOXIDE - CO2 27 mmol/L (21-32); CHLORIDE 105 mmol/L (101-111); CHOL/HDL RATIO 2.2 (<4.4); CHOLESTEROL 142 mg/dL (136-290); CREATININE 0.7 mg/dL (0.6-1.3); CRP - C-REACTIVE PROTEIN 0.6 mg/dL (<0.5); GFR - MDRD 91 (>89); GLUCOSE 87 mg/dL (74-104); HDL CHOLESTEROL 65 mg/dL; LDL CHOLESTEROL,CALCULATED 66 mg/dL; POTASSIUM 3.8 mmol/L (3.5-4.5); SODIUM 138 mmol/L (135-145); TOTAL PROTEIN 7.7 g/dL (6.4-8.9); TRIGLYCERIDES 53 mg/dL (48-352); VLDL CHOLESTEROL 11 mg/dL
[2023-01-13 14:29] LABS: THYROID STIMULATING HORMONE 0.75 uIU/mL (0.34-5.60)
[2023-01-13 14:34] LABS: FERRITIN 29.6 ng/mL (11.0-306.8)
[2023-01-15 10:07] LABS: FOLATE HEMOLYSATE 478.9 ng/mL (Not Estab.); FOLATE RBC 1151 ng/mL (>498); HEMATOCRIT 41.6 % (34.0-46.6)
== END 2023-01-13 13:32 | disposition home or self-care (01) ==
LOC: LAB 13:31
PROVIDERS: ATTEND Internal Medicine
DX: R53.83 Other fatigue (principal); Z13.220 Encounter for screening for lipoid disorders; E55.9 Vitamin D deficiency, unspecified; D53.1 Other megaloblastic anemias, not elsewhere classified; D89.89 Other specified disorders involving the immune mechanism, not elsewhere classified; R79.89 Other specified abnormal findings of blood chemistry
CPT/HCPCS: 36415; 80053; 80061; 81291; 81599; 82306; 82607; 82728; 82747; 83721; 84425; 84443; 85014; 85025; 86140

== ENCOUNTER 2023-04-13 08:13 | Outpatient (CLI) | payer BC ==
--- NOTE | 2023-04-14 00:15 | Ultrasound Report ---
PROCEDURE: Abdomen Complete INDICATIONS: LOWER ABD PAIN TECHNIQUE: Real-time scanning was performed of the abdominal and retroperitoneal organs, with image documentatio n. COMPARISON: Abdominal ultrasound 03/18/2022. FINDINGS: Liver: Liver is normal in size and homogeneous in echotexture. Gallbladder: Unremarkable. Biliary ducts: Intrahepatic bile ducts are non-dilated. Extrahepatic bile duct caliber measures 2.8 mm. Normal is 6-7 mm or less in diameter, or 10 mm or less post-cholecystectomy. Pancreas: Visualized portions of the pancreas are sonographically normal. Spleen: Spleen is normal in size and homogeneous in echotexture. Kidneys: Kidneys are normal in size and echotexture. Right kidney measures 12.2 cm long; left kidne y measures 10.8 cm long. No hydronephrosis or nephrolithiasis. No solid masses. No complex renal cy stic lesions which require follow-up. Aorta: Visualized aorta is normal in caliber at less than 3 cm. Iliacs: Proximal common iliac arteries are normal in caliber at less than 2.5 cm. IVC: Intrahepatic inferior vena cava is patent. Miscellaneous: No free abdominal fluid. IMPRESSION: No acute process. Reviewed by: Tatyana Moreno MD on 04/14/2023 12:14 AM PDT Approved by: Tatyana Moreno MD on 04/14/2023 12:14 AM PDT Station ID: [id number]
== END 2023-04-13 08:14 | disposition home or self-care (01) ==
LOC: DI 08:13
PROVIDERS: ATTEND Internal Medicine
DX: R10.30 Lower abdominal pain, unspecified (principal); R93.5 Abnormal findings on diagnostic imaging of other abdominal regions, including retroperitoneum